=== PATIENT | female | born 1970 | race Caucasian/White ===

== ENCOUNTER 2017-08-08 03:55 | Inpatient (IN) | payer MEDICAID ==
[2017-08-08] MEDS ORDERED: Sodium Chloride 0.9% 1,000 ML IV STA (04:18)
[2017-08-08] MEDS ORDERED: Sodium Chloride 0.9% 1,000 ML ONE (04:35)
[2017-08-08 04:52] LABS: BASO % 0.5 % (0.0-2.0); EOS # 0.1 K/uL (0.0-0.7); EOS % 2.1 % (0.0-4.0); HEMOGLOBIN 12.6 g/dL (11.0-16.0); LYMPH # 1.4 K/uL (1.0-4.3); LYMPH % 25.4 % (20.0-40.0); MEAN CELL VOLUME 85.4 fL (81.0-99.0); MEAN CORPUSCULAR HEMOGLOBIN 28.5 pg (27.0-31.0); MEAN CORPUSCULAR HGB CONC 33.4 g/dL (33.0-37.0); MEAN PLATELET VOLUME 10.6 fL (7.2-11.7); MONO # 0.4 K/uL (0.0-0.8); MONO % 7.3 % (0.0-10.0); NEUT # 3.5 K/uL (1.8-7.0); NEUT % 64.7 % (50.0-75.0); RBC 4.43 Mil/uL (3.80-5.20); RED CELL DISTRIBUTION WIDTH 14.5 % (11.5-14.5); WHITE BLOOD COUNT 5.5 K/uL (4.8-10.8)
[2017-08-08 04:57] LABS: SQUAMOUS EPITHIAL 3 /hpf (0-5); URINE BILIRUBIN NEGATIVE (NEGATIVE); URINE CLARITY Hazy (Clear); URINE COLOR Yellow (YELLOW); URINE GLUCOSE (UA) NORMAL (Normal); URINE LEUKOCYTE ESTERASE NEG Leu/uL (Negative); URINE PROTEIN NEGATIVE (NEGATIVE); URINE UROBILINOGEN NORMAL mg/dL (0.2-1.0)
[2017-08-08 04:58] LABS: URINE BLOOD NEGATIVE (NEGATIVE)
[2017-08-08] MEDS ORDERED: Iohexol 240 (50 ml) PO STA (04:58)
[2017-08-08 05:10] LABS: ALB/GLOB RATIO 1.1 (1.0-2.1); ALBUMIN 3.8 g/dL (3.5-5.0); ALT/SGPT 41 U/L (9-52); AST/SGOT 61 U/L (14-36); BLOOD UREA NITROGEN 16 mg/dL (7-17); CALCIUM 8.8 mg/dl (8.6-10.4); GFR AFRICAN-AMERICAN > 60; GFR NON-AFRICAN AMERICAN > 60; LIPASE 125 U/L (23-300)
[2017-08-08] MEDS ORDERED: Iohexol 240 (50 ml) ONE (05:27)
--- NOTE | 2017-08-08 06:56 | C.PDOC ---
History Of Present Illness 46 y/o female presents to the ED complaining of abdominal pain that started last night. Associated with nausea, but no vomiting. Pain is localized to the left upper area. Patient denies any fever, chills, or diarrhea. Time Seen by Provider: 08/08/17 04:11 Chief Complaint (Nursing): Abdominal Pain History Per: Patient History/Exam Limitations: no limitations Onset/Duration Of Symptoms: Hrs Current Symptoms Are (Timing): Still Present Past Medical History Reviewed: Historical Data, Nursing Documentation, Vital Signs Vital Signs: Last Vital Signs Temp 97.8 F 08/08/17 06:41 Pulse 84 08/08/17 06:41 Resp 20 08/08/17 06:41 BP 94/57 L 08/08/17 06:41 Pulse Ox 98 08/08/17 06:59 - Medical History PMH: No Chronic Diseases Surgical History: Family History: States: No Known Family Hx - Social History Hx Tobacco Use: No Hx Alcohol Use: No Hx Substance Use: No - Immunization History Hx Tetanus Toxoid Vaccination: No Hx Influenza Vaccination: No Hx Pneumococcal Vaccination: No Review Of Systems Except As Marked, All Systems Reviewed And Found Negative. Constitutional: Negative for: Fever, Chills Gastrointestinal: Positive for: Nausea, Abdominal Pain. Negative for: Vomiting , Diarrhea Physical Exam - Physical Exam Appears: Non-toxic, No Acute Distress Skin: Normal Color, Warm, Dry Head: Atraumatic, Normacephalic Eye(s): bilateral: Normal Inspection, PERRL, EOMI Nose: Normal Oral Mucosa: Moist Neck: Normal ROM, Supple Chest: Symmetrical Cardiovascular: Rhythm Regular, No Murmur Respiratory: Normal Breath Sounds, No Rales, No Rhonchi, No Wheezing Gastrointestinal/Abdominal: Soft, Tenderness (mild left-sided tenderness), No Guarding, No Rebound Back: Normal Inspection, No CVA Tenderness, No Vertebral Tenderness Extremity: Bilateral: Atraumatic, Normal Color And Temperature, Normal ROM Pulses: Left Dorsalis Pedis: Normal, Right Dorsalis Pedis: Normal Neurological/Psych: Oriented x3, Normal Speech ED Course And Treatment - Laboratory Results Result Diagrams: 08/08/17 04:42 08/08/17 04:42 O2 Sat by Pulse Oximetry: 98 (RA) Pulse Ox Interpretation: Normal Progress Note: Labs and CT scan ordered. Patient given IV fluids, Toradol, Zofran, and Protonix. Patient will be endorsed to JENNIFER Valdez as of 7: [address] Disposition - Disposition Disposition Time: 07:12 Condition: STABLE Forms: [facility] (Burmese) - Clinical Impression Clinical Impression: Abdominal pain - PA / COOLER OPERATOR / Resident Statement MD/DO has reviewed & agrees with the documentation as recorded. - Scribe Statement The provider has reviewed the documentation as recorded by the Scribe (Brandy Pugh) All medical record entries made by the Scribe were at my direction and personally dictated by me. I have reviewed the chart and agree that the record accurately reflects my personal performance of the history, physical exam, medical decision making, and the department course for this patient. I have also personally directed, reviewed, and agree with the discharge instructions and disposition. Physician Patient Turnover Patient Signed Over To: Marielle Valdez Handoff Comments: CT/dispo
[2017-08-08] MEDS ORDERED: Iodixanol 320 MG/ML 100 ML BOTTLE IV ONE (07:02)
--- NOTE | 2017-08-08 08:41 | CT ---
PROCEDURE: CT Abdomen and Pelvis with contrast HISTORY: abd pain COMPARISON: Limited Abdomen Ultrasound exam dated 2 08/13/2015. TECHNIQUE: Following oral and intravenous contrast administration, a CT examination of the abdomen and pelvis performed from the domes of the diaphragms to the symphysis pubis with reformatted datasets provided not only axial but also sagittal and coronal series. Contrast dose: Visipaque 320, 100 cc Radiation dose: Total exam DLP = 641.07 MGy-cm. This CT exam was performed using one or more of the following dose reduction techniques: Automated exposure control, adjustment of the mA and/or kV according to patient size, and/or use of iterative reconstruction technique. FINDINGS: LOWER THORAX: Extensive bilateral ground-glass opacity is seen suggests of significant interstitial pulmonary disease. Clinically correlate further. LIVER: Hepatic steatosis is appreciate without discrete mass or intrahepatic biliary dilatation apparent. GALLBLADDER AND BILE DUCTS: Unremarkable. PANCREAS: Unremarkable. No gross lesion or ductal dilatation. SPLEEN: Unremarkable. ADRENALS: Unremarkable. No mass. KIDNEYS AND URETERS: Unremarkable. No hydronephrosis. No solid mass. VASCULATURE: Unremarkable. No aortic aneurysm. BOWEL: Stomach appears unremarkable. No bowel obstruction is appreciated there is no pericolic or perienteric reactive change related. No definitive colonic diverticular disease. APPENDIX: Normal appendix. PERITONEUM: Unremarkable. No free fluid. No free air. LYMPH NODES: Unremarkable. No enlarged lymph nodes. BLADDER: Limited evaluation due near complete decompression. REPRODUCTIVE: Unremarkable. BONES: No acute fracture. OTHER FINDINGS: None. IMPRESSION: Nonacute abdomen pelvis CT examination as discussed above. Hepatic steatosis.
--- NOTE | 2017-08-08 11:36 | CT ---
PROCEDURE: CT Chest without contrast HISTORY: ? mass in left upper lung COMPARISON: Chest radiographs 08/08/2017 9:27 a.m.. TECHNIQUE: Contiguous axial images were obtained through the chest without intravenous contrast enhancement. Sagittal and coronal reconstructions were performed. Radiation dose (DLP): 505.53 mGy-cm. This CT exam was performed using one or more of the following dose reduction techniques: Automated exposure control, adjustment of the mA and/or kV according to patient size, and/or use of iterative reconstruction technique. FINDINGS: LUNGS: Diffuse ground-glass opacity is seen affecting the bilateral upper lobes, particularly the apices and the bilateral lower lobes, particularly at the superior segments bilaterally. There is prominent scarring with cavitary changes in the left apex suggesting either bronchiectasis or current or postinfectious cavitary change. No air-fluid levels are associated at this time. No definitive mass identified. The central airways appear clear exclusive of the left apical findings. MEDIASTINUM: Unremarkable thoracic aorta. No aneurysm. Mild cardiomegaly is identified. Main pulmonary artery is dilated to 3.6 cm suggesting pulmonary artery hypertension. Clinically correlate further nevertheless. No prominent lymphadenopathy. PLEURA: No pleural fluid. No pneumothorax. BONES: No fracture. No destructive lesion. UPPER ABDOMEN: Grossly unremarkable. OTHER FINDINGS: Small hiatal hernia is encountered. IMPRESSION: Diffuse bilateral ground-glass opacity affects the upper greater than lower segments of the bilateral upper and lower lobes as well as the right middle lobe with bronchiectasis or cavitary changes either from current or postinfectious process in the left apex. No send lymphadenopathy, pleural or pericardial effusion. Cardiomegaly and evidence suggesting pulmonary artery hypertension. Clinically correlate further.
[2017-08-08 12:27] LABS: B-TYPE NATRIURETIC PEPTIDE 71.2 pg/mL (0-450)
--- NOTE | 2017-08-08 12:35 | RAD ---
HISTORY: luq pain. abnl appearing lungs on ab ct COMPARISON: Subsequent chest CT 08/08/2017 performed after this radiograph series. TECHNIQUE: Chest PA and lateral FINDINGS: LUNGS: Fibrotic changes in the left apex with possible cavitary changes. Subtle diffuse reticular markings are increased bilaterally with ground-glass opacity seen in subsequent chest CT bilaterally. Please see separate report. PLEURA: No significant pleural effusion identified. No pneumothorax apparent. CARDIOVASCULAR: Cardiac silhouette appears borderline enlarged. No pulmonary vascular congestion. OSSEOUS STRUCTURES: No significant abnormalities. VISUALIZED UPPER ABDOMEN: Normal. OTHER FINDINGS: None. IMPRESSION: Left apical fibrotic changes with cavitary lucency suspected. Bilateral increased reticular changes may reflect interstitial pulmonary disease low such as an atypical pneumonitis or reactive airways disease. Borderline cardiomegaly. Further clinical correlation posterior please see separate chest CT also performed 08/08/2017.
[2017-08-08] MEDS ORDERED: Tuberculin 5 Units/0.1 ml Inj ID ONE (14:30)
[2017-08-08] MEDS: Piperacill/Tazo 3.375gm in Dex 3.375 GM/50 ML BAG IVPB SCH ×2 (14:39→20:02)
--- NOTE | 2017-08-08 14:59 | CP.PCM.HP ---
<Amauri Patiño - Last Filed: 08/08/17 18:13> History of Present Illness - History of Present Illness History of Present Illness: 46 year old female with past medical history of childhood asthma, systolic heart murmur, presents today with abdominal pain. Patient reports her abdominal pain started suddenly this morning at 3am. Patient woke up from her sleep due the this pain. Patient describes the pain as bloating in quality, and non radiating. Patient also reports to feel nauseous and chills associated with this abdominal pain, but no vomiting. The pain is worse with movement. No prior history of the same. Patient denies having sick contacts, changes in diet, recent travels, fever, night sweat, weight loss, headache, shortness of breath, chest pain, diarrhea, urinary complaints. Patient reports to have asthma when she was a child and have not experienced any attacks since. She was evaluated by a twister frame tender for her heart murmur about 2 years ago and was told no intervention was necessary at the time. In the ED, chest CT shows diffuse bilateral ground-glass opacity and cavitary lesion of lung. She further denies having previous lung infections or trauma. PMD: [address] [place] [address] clinic PMHx: childhood asthma, systolic heart murmur PSHx: (2002, 2008) Allergy: mometasone Family Hx: Father with brain caner 2010 Social hx: denies tobacco, alcohol or drug use. Lives at home with and two children. 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 Home meds: Advil prn for back pain Present on Admission - Present on Admission Any Indicators Present on Admission: No Review of Systems - Review of Systems All systems: reviewed and no additional remarkable complaints except - Constitutional Constitutional: As Per HPI, Chills. absent: Anorexia, Fatigue, Fever - EENT Eyes: As Per HPI. absent: Blind Spots, Blurred Vision, Decreased Night Vision, Diplopia Ears: As Per HPI. absent: Decreased Hearing, Disequilibrium, Dizziness Nose/Mouth/Throat: As Per HPI. absent: Epistaxis, Nasal Obstruction, Nasal Trauma - Breasts Breasts: As Per HPI - Cardiovascular Cardiovascular: As Per HPI. absent: Chest Pain, Chest Pain at Rest, Chest Pain with Activity, Edema, Lightheadedness, Palpitations, Syncope - Respiratory Respiratory: As Per HPI. absent: Cough, Dyspnea, Wheezing - Gastrointestinal Gastrointestinal: As Per HPI, Abdominal Pain, Bloating, Nausea. absent: Diarrhea, Vomiting - Genitourinary Genitourinary: As Per HPI. absent: Change in Urinary Stream, Difficulty Urinating, Dysuria - Reproductive: Female Reproductive:Female: As Per HPI - Menstruation Menstruation: As Per HPI - Musculoskeletal Musculoskeletal: As Per HPI, Back Pain - Integumentary Integumentary: As Per HPI. absent: Acne, Alopecia - Neurological Neurological: As Per HPI. absent: Abnormal Gait, Dizziness, Numbness, Syncope, Tremor, Vertigo - Psychiatric Psychiatric: As Per HPI. absent: Anxiety, Confusion, Depression - Endocrine Endocrine: As Per HPI. absent: Change in Body Appearance - Hematologic/Lymphatic Hematologic: As Per HPI. absent: Easy Bleeding Past Patient History - Infectious Disease Hx of Infectious Diseases: None - Past Social History Smoking Status: Never Smoked - PSYCHIATRIC Hx Substance Use: No - SURGICAL HISTORY Hx Section: Yes - ANESTHESIA Hx Anesthesia: Yes Hx Anesthesia Reactions: No Meds Allergies/Adverse Reactions: Allergies Allergy/AdvReac Type Severity Reaction Status Date / Time mometasone furoate Allergy Severe Verified 08/08/17 04:16 [From Nasonex] Physical Exam - Constitutional Appears: Well, Non-toxic, No Acute Distress - Head Exam Head Exam: ATRAUMATIC, NORMOCEPHALIC - Eye Exam Eye Exam: EOMI, Normal appearance, PERRL Pupil Exam: NORMAL ACCOMODATION, PERRL - ENT Exam ENT Exam: Mucous Membranes Moist - Neck Exam Neck exam: Positive for: Full Rom, Normal Inspection - Respiratory Exam Respiratory Exam: Clear to Auscultation Bilateral, NORMAL BREATHING PATTERN. absent: Rhonchi, Wheezes, Respiratory Distress - Cardiovascular Exam Cardiovascular Exam: REGULAR RHYTHM, +S1, +S2, Systolic Murmur - GI/Abdominal Exam GI & Abdominal Exam: Normal Bowel Sounds, Soft. absent: Tenderness - Extremities Exam Extremities exam: Positive for: normal capillary refill, normal inspection, pedal pulses present. Negative for: pedal edema, tenderness - Back Exam Back exam: NORMAL INSPECTION. absent: CVA tenderness (L), CVA tenderness (R) - Neurological Exam Neurological exam: Alert, CN II-XII Intact, Oriented x3 - Psychiatric Exam Psychiatric exam: Normal Affect, Normal Mood - Skin Skin Exam: Intact, Normal Color, Warm Results - Vital Signs Recent Vital Signs: Last Vital Signs Temp 97 F L 08/08/17 12:46 Pulse 76 08/08/17 12:46 Resp 18 08/08/17 13:15 BP 113/58 L 08/08/17 12:46 Pulse Ox 99 08/08/17 12:46 - Labs Result Diagrams: 08/08/17 04:42 08/08/17 04:42 Labs: Laboratory Results - last 24 hr 08/08/17 08/08/17 08/08/17 04:42 04:42 04:49 WBC 5.5 RBC 4.43 Hgb 12.6 Hct 37.8 MCV 85.4 MCH 28.5 MCHC 33.4 RDW 14.5 Plt Count 148 MPV 10.6 Neut % (Auto) 64.7 Lymph % (Auto) 25.4 Ray % (Auto) 7.3 Eos % (Auto) 2.1 Baso % (Auto) 0.5 Neut # (Auto) 3.5 Lymph # (Auto) 1.4 Ray # (Auto) 0.4 Eos # (Auto) 0.1 Baso # (Auto) 0.0 Sodium 143 Potassium 4.0 Chloride 109 H Carbon Dioxide 25 Anion Gap 13 BUN 16 Creatinine 0.7 Est GFR ( Amer) > 60 Est GFR (Non-Af Amer) > 60 Random Glucose 125 H Calcium 8.8 Total Bilirubin 0.3 AST 61 H ALT 41 Alkaline Phosphatase 91 NT-Pro-B Natriuret Pep 71.2 Total Protein 7.2 Albumin 3.8 Globulin 3.4 Albumin/Globulin Ratio 1.1 Lipase 125 Urine Color Yellow Urine Clarity Hazy Urine pH 6.0 Ur Specific [place] 1.018 Urine Protein Negative Urine Glucose (UA) Normal Urine Ketones Negative Urine Blood Negative Urine Nitrate Negative Urine Bilirubin Negative Urine Urobilinogen Normal Ur Leukocyte Esterase Neg Urine WBC (Auto) 4 Urine RBC (Auto) 2 Ur Squamous Epith Cells 3 Assessment & Plan - Assessment and Plan (Free Text) Assessment: Bronchiectasis/cavitary changes of the lungs -CT abd shows bilateral ground glass opacity -CXR shows Left apical fibrotic changes with cavitary lucency suspected. Bilateral increased reticular changes may reflect interstitial pulmonary disease low such as an atypical pneumonitis or reactive airways disease -CT Chest shows diffuse bilateral ground-glass opacity affects the upper greater than lower segments of the bilateral upper and lower lobes as well as the right middle lobe with bronchiectasis or cavitary changes either from current or postinfectious process in the left apex. Cardiomegaly and evidence suggesting pulmonary artery hypertension -Patient currently has no pulmonary symptoms -Follow up ESR, procal, sputum culture, AFBx3, PPD skin test -Isolation precaution -Pulmonary consulted, Dr. Lew help appreciated -ID consulted, Dr. Owens help appreciated -Zosyn 3.375gm Q6h (start 08/08) Systolic murmur -Follow up echocardiogram -Cardiology consulted, Dr. Wisdom help appreciated -Follow up KARISHMA, EKG Abdominal pain -CT abd shows nonacute abdomen pelvis examination. Hepatic steatosis. -Afebrile, no leukocytosis, negative lipase -Improved with toradol -Follow up procal Prophylactic measures -Pepcid -Lovenox Case discussed with attending physician Dr. Dukes <Catherine Dukes - Last Filed: 08/16/17 18:55> Results - Vital Signs Recent Vital Signs: Last Vital Signs Temp 98 F 08/08/17 16:00 Pulse 56 L 08/08/17 16:00 Resp 20 08/08/17 16:00 BP 109/52 L 08/08/17 16:00 Pulse Ox 95 08/08/17 16:00 - Labs Result Diagrams: 08/15/17 07:58 08/15/17 07:58 Labs: Laboratory Results - last 24 hr 08/08/17 08/08/17 08/08/17 04:42 04:42 04:49 WBC 5.5 RBC 4.43 Hgb 12.6 Hct 37.8 MCV 85.4 MCH 28.5 MCHC 33.4 RDW 14.5 Plt Count 148 MPV 10.6 Neut % (Auto) 64.7 Lymph % (Auto) 25.4 Ray % (Auto) 7.3 Eos % (Auto) 2.1 Baso % (Auto) 0.5 Neut # (Auto) 3.5 Lymph # (Auto) 1.4 Ray # (Auto) 0.4 Eos # (Auto) 0.1 Baso # (Auto) 0.0 ESR Sodium 143 Potassium 4.0 Chloride 109 H Carbon Dioxide 25 Anion Gap 13 BUN 16 Creatinine 0.7 Est GFR ( Amer) > 60 Est GFR (Non-Af Amer) > 60 Random Glucose 125 H Calcium 8.8 Total Bilirubin 0.3 AST 61 H ALT 41 Alkaline Phosphatase 91 NT-Pro-B Natriuret Pep 71.2 Total Protein 7.2 Albumin 3.8 Globulin 3.4 Albumin/Globulin Ratio 1.1 Lipase 125 Procalcitonin Urine Color Yellow Urine Clarity Hazy Urine pH 6.0 Ur Specific [place] 1.018 Urine Protein Negative Urine Glucose (UA) Normal Urine Ketones Negative Urine Blood Negative Urine Nitrate Negative Urine Bilirubin Negative Urine Urobilinogen Normal Ur Leukocyte Esterase Neg Urine WBC (Auto) 4 Urine RBC (Auto) 2 Ur Squamous Epith Cells 3 08/08/17 08/08/17 16:40 16:40 WBC RBC Hgb Hct MCV MCH MCHC RDW Plt Count MPV Neut % (Auto) Lymph % (Auto) Ray % (Auto) Eos % (Auto) Baso % (Auto) Neut # (Auto) Lymph # (Auto) Ray # (Auto) Eos # (Auto) Baso # (Auto) ESR 10 Sodium Potassium Chloride Carbon Dioxide Anion Gap BUN Creatinine Est GFR ( Amer) Est GFR (Non-Af Amer) Random Glucose Calcium Total Bilirubin AST ALT Alkaline Phosphatase NT-Pro-B Natriuret Pep Total Protein Albumin Globulin Albumin/Globulin Ratio Lipase Procalcitonin < 0.05 L Urine Color Urine Clarity Urine pH Ur Specific [place] Urine Protein Urine Glucose (UA) Urine Ketones Urine Blood Urine Nitrate Urine Bilirubin Urine Urobilinogen Ur Leukocyte Esterase Urine WBC (Auto) Urine RBC (Auto) Ur Squamous Epith Cells Attending/Attestation - Attestation I have personally seen and examined this patient.: Yes I have fully participated in the care of the patient.: Yes I have reviewed all pertinent clinical information: Yes Notes (Text): Patient was seen and examined by me. History taken with the database analyst service. Denies sob,no fever,no recent weight loss,no night sweats,no recnt chest infection,denies SOB at night or ambulation Discussed with the resident. unlikely bacterial infection ?. Satuarting well and no sob we will start on zosyn and aske Dr Owens for consult R/O TB,Isolation,pulmonary consult I agree with the resident's documentation
--- NOTE | 2017-08-08 16:18 | CP.PCM.CON ---
History of Present Illness - History of Present Illness History of Present Illness: 46 year old with Hx of asthma, admitted with abd pain, diagnosed with gallstones 2016 at ED, found now with interstitial infiltrate on chest CT, for ID, pul work up, no CP or SOB. with hx of syt murmur was evaluated before, 2 years ago, asymptomatic. will follow with echo Review of Systems - Review of Systems Systems not reviewed;Unavailable: Language Barrier - Constitutional Constitutional: Anorexia. absent: Chills - EENT Eyes: absent: Discharge Ears: absent: Ear Discharge, Dizziness Nose/Mouth/Throat: absent: Epistaxis - Cardiovascular Cardiovascular: absent: Acrocyanosis, Diaphoresis, Palpitations, Pedal Edema, Syncope - Respiratory Respiratory: absent: Cough, Dyspnea, Hemoptysis - Gastrointestinal Gastrointestinal: absent: Abdominal Pain, Diarrhea, Melena, Vomiting - Genitourinary Genitourinary: absent: Change in Urinary Stream Past Patient History - Infectious Disease Hx of Infectious Diseases: None - Past Social History Smoking Status: Never Smoked - PSYCHIATRIC Hx Substance Use: No - SURGICAL HISTORY Hx Section: Yes - ANESTHESIA Hx Anesthesia: Yes Hx Anesthesia Reactions: No Meds Allergies/Adverse Reactions: Allergies Allergy/AdvReac Type Severity Reaction Status Date / Time mometasone furoate Allergy Severe Verified 08/08/17 04:16 [From Nasonex] - Medications Medications: Current Medications Enoxaparin Sodium (Lovenox) 40 mg SC DAILY KAMERON Famotidine (Pepcid) 20 mg PO BID KAMERON Piperacillin Sod/Tazobactam Sod (Zosyn 3.375 Gm Iv Premix) 3.375 gm in 50 mls @ 100 mls/hr IVPB Q6H KAMERON PRN Reason: Protocol Last Admin: 08/08/17 14:39 Dose: 100 mls/hr Physical Exam - Constitutional Appears: Non-toxic - Head Exam Head Exam: ATRAUMATIC - Eye Exam Eye Exam: EOMI - ENT Exam ENT Exam: Mucous Membranes Moist - Neck Exam Neck exam: Negative for: Lymphadenopathy, Thyromegaly - Respiratory Exam Respiratory Exam: Clear to Auscultation Bilateral. absent: Rales - Cardiovascular Exam Cardiovascular Exam: REGULAR RHYTHM, Systolic Murmur - GI/Abdominal Exam GI & Abdominal Exam: Organomegaly. absent: Normal Bowel Sounds - Rectal Exam Rectal Exam: Deferred - Extremities Exam Extremities exam: Positive for: normal capillary refill. Negative for: calf tenderness - Neurological Exam Neurological exam: Alert, Oriented x3 - Psychiatric Exam Psychiatric exam: Normal Affect - Skin Skin Exam: Dry Results - Vital Signs Recent Vital Signs: Last Vital Signs Temp 98.3 F 08/08/17 14:00 Pulse 66 08/08/17 14:00 Resp 18 08/08/17 14:00 BP 125/60 08/08/17 14:00 Pulse Ox 98 08/08/17 14:00 - Labs Result Diagrams: 08/10/17 07:25 08/10/17 07:25 Labs: Laboratory Results - last 24 hr 08/08/17 08/08/17 08/08/17 04:42 04:42 04:49 WBC 5.5 RBC 4.43 Hgb 12.6 Hct 37.8 MCV 85.4 MCH 28.5 MCHC 33.4 RDW 14.5 Plt Count 148 MPV 10.6 Neut % (Auto) 64.7 Lymph % (Auto) 25.4 [place] % (Auto) 7.3 Eos % (Auto) 2.1 Baso % (Auto) 0.5 Neut # (Auto) 3.5 Lymph # (Auto) 1.4 [place] # (Auto) 0.4 Eos # (Auto) 0.1 Baso # (Auto) 0.0 Sodium 143 Potassium 4.0 Chloride 109 H Carbon Dioxide 25 Anion Gap 13 BUN 16 Creatinine 0.7 Est GFR ( Amer) > 60 Est GFR (Non-Af Amer) > 60 Random Glucose 125 H Calcium 8.8 Total Bilirubin 0.3 AST 61 H ALT 41 Alkaline Phosphatase 91 NT-Pro-B Natriuret Pep 71.2 Total Protein 7.2 Albumin 3.8 Globulin 3.4 Albumin/Globulin Ratio 1.1 Lipase 125 Urine Color Yellow Urine Clarity Hazy Urine pH 6.0 Ur Specific [place] 1.018 Urine Protein Negative Urine Glucose (UA) Normal Urine Ketones Negative Urine Blood Negative Urine Nitrate Negative Urine Bilirubin Negative Urine Urobilinogen Normal Ur Leukocyte Esterase Neg Urine WBC (Auto) 4 Urine RBC (Auto) 2 Ur Squamous Epith Cells 3 Assessment & Plan (1) Murmur, cardiac Status: Acute
--- NOTE | 2017-08-08 18:40 | CP.PCM.CON ---
History of Present Illness - History of Present Illness History of Present Illness: 46 year old female presents today with abdominal pain described as bloating in quality, and non radiating. Patient also reports to feel nauseous and chills associated with this abdominal pain, but no vomiting. In the ED, chest CT shows diffuse bilateral ground-glass opacity and cavitary lesion of lung. She further denies having previous lung infections or trauma. Referred for ID eval for possible infectious etiology advised to screen for TB in view of CT findings PMHx: childhood asthma, systolic heart murmur PSHx: (2002, 2008) Allergy: mometasone Family Hx: Father with brain caner 2010 Social hx: denies tobacco, alcohol or drug use. Lives at home with and two children. 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 Home meds: Advil prn for back pain Review of Systems - Review of Systems All systems: reviewed and no additional remarkable complaints except - Constitutional Constitutional: As Per HPI Past Patient History - Infectious Disease Hx of Infectious Diseases: None - Past Social History Smoking Status: Never Smoked - PSYCHIATRIC Hx Substance Use: No - SURGICAL HISTORY Hx Section: Yes - ANESTHESIA Hx Anesthesia: Yes Hx Anesthesia Reactions: No Meds Allergies/Adverse Reactions: Allergies Allergy/AdvReac Type Severity Reaction Status Date / Time mometasone furoate Allergy Severe Verified 08/08/17 04:16 [From Nasonex] - Medications Medications: Current Medications Enoxaparin Sodium (Lovenox) 40 mg SC DAILY [facility] Famotidine (Pepcid) 20 mg PO BID [facility] Last Admin: 08/08/17 17:44 Dose: 20 mg Piperacillin Sod/Tazobactam Sod (Zosyn 3.375 Gm Iv Premix) 3.375 gm in 50 mls @ 100 mls/hr IVPB Q6H [facility] PRN Reason: Protocol Last Admin: 08/08/17 14:39 Dose: 100 mls/hr Physical Exam - Constitutional Appears: No Acute Distress - Head Exam Head Exam: ATRAUMATIC, NORMAL INSPECTION, NORMOCEPHALIC - Eye Exam Eye Exam: EOMI, PERRL. absent: Scleral icterus - ENT Exam ENT Exam: Mucous Membranes Dry, Normal External Ear Exam - Neck Exam Neck exam: Negative for: Lymphadenopathy - Respiratory Exam Respiratory Exam: Decreased Breath Sounds, Rhonchi - Cardiovascular Exam Cardiovascular Exam: REGULAR RHYTHM, +S1, +S2 - GI/Abdominal Exam GI & Abdominal Exam: Diminished Bowel Sounds, Soft. absent: Tenderness - Rectal Exam Rectal Exam: Deferred - Exam Exam: NORMAL INSPECTION - Extremities Exam Extremities exam: Negative for: pedal edema - Back Exam Back exam: absent: CVA tenderness (L), CVA tenderness (R) - Neurological Exam Neurological exam: Alert, CN II-XII Intact, Oriented x3 - Psychiatric Exam Psychiatric exam: Normal Mood - Skin Skin Exam: Dry Results - Vital Signs Recent Vital Signs: Last Vital Signs Temp 98 F 08/08/17 16:00 Pulse 56 L 08/08/17 16:00 Resp 20 08/08/17 16:00 BP 109/52 L 08/08/17 16:00 Pulse Ox 95 08/08/17 16:00 - Labs Result Diagrams: 08/08/17 04:42 08/08/17 04:42 Labs: Laboratory Results - last 24 hr 08/08/17 08/08/17 08/08/17 04:42 04:42 04:49 WBC 5.5 RBC 4.43 Hgb 12.6 Hct 37.8 MCV 85.4 MCH 28.5 MCHC 33.4 RDW 14.5 Plt Count 148 MPV 10.6 Neut % (Auto) 64.7 Lymph % (Auto) 25.4 [place] % (Auto) 7.3 Eos % (Auto) 2.1 Baso % (Auto) 0.5 Neut # (Auto) 3.5 Lymph # (Auto) 1.4 [place] # (Auto) 0.4 Eos # (Auto) 0.1 Baso # (Auto) 0.0 ESR Sodium 143 Potassium 4.0 Chloride 109 H Carbon Dioxide 25 Anion Gap 13 BUN 16 Creatinine 0.7 Est GFR ( Amer) > 60 Est GFR (Non-Af Amer) > 60 Random Glucose 125 H Calcium 8.8 Total Bilirubin 0.3 AST 61 H ALT 41 Alkaline Phosphatase 91 NT-Pro-B Natriuret Pep 71.2 Total Protein 7.2 Albumin 3.8 Globulin 3.4 Albumin/Globulin Ratio 1.1 Lipase 125 Procalcitonin Urine Color Yellow Urine Clarity Hazy Urine pH 6.0 Ur Specific [place] 1.018 Urine Protein Negative Urine Glucose (UA) Normal Urine Ketones Negative Urine Blood Negative Urine Nitrate Negative Urine Bilirubin Negative Urine Urobilinogen Normal Ur Leukocyte Esterase Neg Urine WBC (Auto) 4 Urine RBC (Auto) 2 Ur Squamous Epith Cells 3 08/08/17 08/08/17 16:40 16:40 WBC RBC Hgb Hct MCV MCH MCHC RDW Plt Count MPV Neut % (Auto) Lymph % (Auto) [place] % (Auto) Eos % (Auto) Baso % (Auto) Neut # (Auto) Lymph # (Auto) [place] # (Auto) Eos # (Auto) Baso # (Auto) ESR 10 Sodium Potassium Chloride Carbon Dioxide Anion Gap BUN Creatinine Est GFR ( Amer) Est GFR (Non-Af Amer) Random Glucose Calcium Total Bilirubin AST ALT Alkaline Phosphatase NT-Pro-B Natriuret Pep Total Protein Albumin Globulin Albumin/Globulin Ratio Lipase Procalcitonin < 0.05 L Urine Color Urine Clarity Urine pH Ur Specific [place] Urine Protein Urine Glucose (UA) Urine Ketones Urine Blood Urine Nitrate Urine Bilirubin Urine Urobilinogen Ur Leukocyte Esterase Urine WBC (Auto) Urine RBC (Auto) Ur Squamous Epith Cells Assessment & Plan (1) Abdominal pain Status: Acute (2) Cavitary lesion of lung Status: Acute (3) Ground glass opacity present on imaging of lung Status: Acute - Assessment and Plan (Free Text) Assessment: possible chronic lung changes- not symptomatic at present would rule out active TB before d/c and refer to Chest clinic for follow up
--- NOTE | 2017-08-08 20:21 | CP.PCM.CON ---
History of Present Illness - History of Present Illness History of Present Illness: Pulmonary Evaluation Covering Dr. Lew The patient was Seen/interviewed and examined by me at the bedside, Medical records reviewed and Management issues were discussed and formulated with the house staff. Events reviewed 46 year old female with PMHx of controlled asthma (since childhood) and systolic heart murmur (Dx about 2 years ago). Who presented yesterday with complaint on abdominal pain, mostly epigastric and upper Abd, Patient describes the pain as bloatingand non radiating. Patient underwent CT abd shows bilateral ground glass opacity, CXR shows Left apical fibrotic changes with cavitary lucency suspected. Patient recalles being told that she has a spot over lung when she was hospitalized in 2002 Patient lying in bed comfortably. Patient Denies dyspnea, Fever/chills/night sweats, chest pain, Cough, hempotysis, or Palpitations Pt denies any sick contact or recent travel. - Social hx:Pt from [employer], denies tobacco, alcohol or drug use. Lives at home with and two children. - CT Chest shows diffuse bilateral ground-glass opacity affects the upper greater than lower segments of the bilateral upper and lower lobes as well as the right middle lobe with bronchiectasis or cavitary changes either from current or postinfectious process in the left apex. Cardiomegaly and evidence suggesting pulmonary artery hypertension , Review of Systems - Cardiovascular Cardiovascular: absent: As Per HPI, Acrocyanosis, Chest Pain, Chest Pain at Rest , Chest Pain with Activity, Claudication, Diaphoresis, Dyspnea, Dyspnea on Exertion, Edema, Irregular Heart Rhythm, Pain Radiating to Arm/Neck/Jaw, Leg Edema, Leg Ulcers, Lightheadedness, Orthopnea, Palpitations, Paroxysmal Nocturnal Dyspnea, Pedal Edema, Radiating Pain, Rapid Heart Rate, Slow Heart Rate, Syncope, Other - Respiratory Respiratory: absent: As Per HPI, Cough, Dyspnea, Hemoptysis, Dyspnea on Exertion , Wheezing, Snoring, Stridor, Pain on Inspiration, Chest Congestion, Excessive Mucous Production, Change in Mucous Color, Pain with Coughing, Other - Gastrointestinal Gastrointestinal: Abdominal Pain (Epigastric ) Past Patient History - Infectious Disease Hx of Infectious Diseases: None - Past Social History Smoking Status: Never Smoked - PSYCHIATRIC Hx Substance Use: No - SURGICAL HISTORY Hx Section: Yes - ANESTHESIA Hx Anesthesia: Yes Hx Anesthesia Reactions: No Meds Allergies/Adverse Reactions: Allergies Allergy/AdvReac Type Severity Reaction Status Date / Time mometasone furoate Allergy Severe Verified 08/08/17 04:16 [From Nasonex] - Medications Medications: Current Medications Enoxaparin Sodium (Lovenox) 40 mg SC DAILY [facility] Famotidine (Pepcid) 20 mg PO BID [facility] Last Admin: 08/08/17 17:44 Dose: 20 mg Piperacillin Sod/Tazobactam Sod (Zosyn 3.375 Gm Iv Premix) 3.375 gm in 50 mls @ 100 mls/hr IVPB Q6H [facility] PRN Reason: Protocol Last Admin: 08/08/17 20:02 Dose: 100 mls/hr Ketorolac Tromethamine (Toradol) 30 mg IVP Q6 PRN PRN Reason: Pain, severe (8-10) Physical Exam - Constitutional Appears: Well, Non-toxic, No Acute Distress - Head Exam Head Exam: ATRAUMATIC, NORMAL INSPECTION, NORMOCEPHALIC - Eye Exam Eye Exam: EOMI, Normal appearance. absent: Conjunctival injection Pupil Exam: NORMAL ACCOMODATION, PERRL - ENT Exam ENT Exam: Mucous Membranes Moist - Neck Exam Neck exam: Positive for: Full Rom, Normal Inspection. Negative for: Lymphadenopathy, Meningismus, Tenderness, Thyromegaly - Respiratory Exam Respiratory Exam: Clear to Auscultation Bilateral. absent: Accessory Muscle Use , Chest Wall Tenderness, Decreased Breath Sounds, Prolonged Expiratory Phase, Rales, Rhonchi, Wheezes, Respiratory Distress - Cardiovascular Exam Cardiovascular Exam: REGULAR RHYTHM, RRR, +S1, +S2. absent: Bradycardia, Tachycardia, Clicks, Diastolic murmur, JVD, Systolic Murmur - GI/Abdominal Exam GI & Abdominal Exam: Normal Bowel Sounds. absent: Distended, Firm, Guarding, Hernia, Organomegaly - Extremities Exam Extremities exam: Positive for: full ROM, normal capillary refill. Negative for : calf tenderness, joint swelling, pedal edema, tenderness - Back Exam Back exam: absent: CVA tenderness (L), CVA tenderness (R) - Neurological Exam Neurological exam: Alert, CN II-XII Intact, Motor Sensory Deficit, Normal Gait, Oriented x3, Reflexes Normal Results - Vital Signs Recent Vital Signs: Last Vital Signs Temp 98 F 08/08/17 16:00 Pulse 56 L 08/08/17 16:00 Resp 20 05/27/18 16:00 BP 109/52 L 08/08/17 16:00 Pulse Ox 95 08/08/17 16:00 - Labs Result Diagrams: 08/08/17 04:42 08/08/17 04:42 Labs: Laboratory Results - last 24 hr 08/08/17 08/08/17 08/08/17 04:42 04:42 04:49 WBC 5.5 RBC 4.43 Hgb 12.6 Hct 37.8 MCV 85.4 MCH 28.5 MCHC 33.4 RDW 14.5 Plt Count 148 MPV 10.6 Neut % (Auto) 64.7 Lymph % (Auto) 25.4 [place] % (Auto) 7.3 Eos % (Auto) 2.1 Baso % (Auto) 0.5 Neut # (Auto) 3.5 Lymph # (Auto) 1.4 [place] # (Auto) 0.4 Eos # (Auto) 0.1 Baso # (Auto) 0.0 ESR Sodium 143 Potassium 4.0 Chloride 109 H Carbon Dioxide 25 Anion Gap 13 BUN 16 Creatinine 0.7 Est GFR ( Amer) > 60 Est GFR (Non-Af Amer) > 60 Random Glucose 125 H Calcium 8.8 Total Bilirubin 0.3 AST 61 H ALT 41 Alkaline Phosphatase 91 Total Creatine Kinase NT-Pro-B Natriuret Pep 71.2 Total Protein 7.2 Albumin 3.8 Globulin 3.4 Albumin/Globulin Ratio 1.1 Lipase 125 Procalcitonin Urine Color Yellow Urine Clarity Hazy Urine pH 6.0 Ur Specific [place] 1.018 Urine Protein Negative Urine Glucose (UA) Normal Urine Ketones Negative Urine Blood Negative Urine Nitrate Negative Urine Bilirubin Negative Urine Urobilinogen Normal Ur Leukocyte Esterase Neg Urine WBC (Auto) 4 Urine RBC (Auto) 2 Ur Squamous Epith Cells 3 08/08/17 08/08/17 08/08/17 16:40 16:40 19:50 WBC RBC Hgb Hct MCV MCH MCHC RDW Plt Count MPV Neut % (Auto) Lymph % (Auto) [place] % (Auto) Eos % (Auto) Baso % (Auto) Neut # (Auto) Lymph # (Auto) [place] # (Auto) Eos # (Auto) Baso # (Auto) ESR 10 Sodium Potassium Chloride Carbon Dioxide Anion Gap BUN Creatinine Est GFR ( Amer) Est GFR (Non-Af Amer) Random Glucose Calcium Total Bilirubin AST ALT Alkaline Phosphatase Total Creatine Kinase 63 NT-Pro-B Natriuret Pep Total Protein Albumin Globulin Albumin/Globulin Ratio Lipase Procalcitonin < 0.05 L Urine Color Urine Clarity Urine pH Ur Specific [place] Urine Protein Urine Glucose (UA) Urine Ketones Urine Blood Urine Nitrate Urine Bilirubin Urine Urobilinogen Ur Leukocyte Esterase Urine WBC (Auto) Urine RBC (Auto) Ur Squamous Epith Cells Assessment & Plan (1) Cavitary lesion of lung Status: Acute (2) Ground glass opacity present on imaging of lung Status: Acute (3) Pulmonary hypertension Status: Acute - Assessment and Plan (Free Text) Assessment: Bronchiectasis, Need to R/O Mac infection and ABPA cavitary changes of the lungs Pulmonary hypertension Controlled Asthma, reactive airways disease. Pt denies shortness of breath resolved now or any pulmonary complains at this time, stable respiratory status, adequate saturation on RA Afebrile, no leukocytosis Doubt acute infectious process or atypical pneumonitis Agree with Isolation precaution Follow up sputum culture, AFBx3, quantiferon gold Aspergillus antigen and antigen ordered Sputum for MAC ordered Follow up echocardiogram
[2017-08-08 20:22] LABS: CK-MB 0.29 ng/mL (0.0-3.38)
[2017-08-09] MEDS: Piperacill/Tazo 3.375gm in Dex 3.375 GM/50 ML BAG IVPB SCH ×2 (02:23→08:43)
[2017-08-09 04:24] LABS: CK-MB 0.29 ng/mL (0.0-3.38)
[2017-08-09 08:15] LABS: BASO % 0.7 % (0.0-2.0); EOS # 0.1 K/uL (0.0-0.7); EOS % 2.1 % (0.0-4.0); HEMOGLOBIN 13.5 g/dL (11.0-16.0); LYMPH # 1.2 K/uL (1.0-4.3); LYMPH % 31.6 % (20.0-40.0); MEAN CELL VOLUME 85.5 fL (81.0-99.0); MEAN CORPUSCULAR HEMOGLOBIN 29.2 pg (27.0-31.0); MEAN CORPUSCULAR HGB CONC 34.1 g/dL (33.0-37.0); MEAN PLATELET VOLUME 10.6 fL (7.2-11.7); MONO # 0.3 K/uL (0.0-0.8); MONO % 7.3 % (0.0-10.0); NEUT # 2.2 K/uL (1.8-7.0); NEUT % 58.3 % (50.0-75.0); NRBC % 0.2 % (0.0-2.0); RBC 4.62 Mil/uL (3.80-5.20); RED CELL DISTRIBUTION WIDTH 14.2 % (11.5-14.5); WHITE BLOOD COUNT 3.8 K/uL (4.8-10.8)
[2017-08-09] MEDS ORDERED: Albuterol 0.083% Inhal Sol (2.5 mg/3 mL) UD INH ONE (08:30)
[2017-08-09] MEDS ORDERED: Acetylcysteine 20% Inhal Soln (4ml) INH SCH (08:30)
[2017-08-09 08:34] LABS: ALB/GLOB RATIO 1.1 (1.0-2.1); ALBUMIN 4.1 g/dL (3.5-5.0); ALT/SGPT 67 U/L (9-52); AST/SGOT 47 U/L (14-36); BLOOD UREA NITROGEN 11 mg/dL (7-17); GFR AFRICAN-AMERICAN > 60; GFR NON-AFRICAN AMERICAN > 60
[2017-08-09 08:47] LABS: HEPATITIS B SURFACE AG Negative (NEGATIVE)
[2017-08-09 08:53] LABS: HEPATITIS A IGM NEGATIVE (NEGATIVE); HEPATITIS B CORE AB NEGATIVE (NEGATIVE)
[2017-08-09 09:05] LABS: HEPATITIS C ANTIBODY NEGATIVE (NEGATIVE)
[2017-08-09] MEDS ORDERED: Lactobacillus Acidophilus 500 MU Cap PO SCH (10:00)
[2017-08-09] MEDS: Enoxaparin 40 mg Syringe SC SCH (10:48)
--- NOTE | 2017-08-09 15:02 | CP.PCM.PN ---
<Carrol Nichols - Last Filed: 08/09/17 14:57> Subjective - Date & Time of Evaluation Date of Evaluation: 08/09/17 Time of Evaluation: 09:00 - Subjective Subjective: Medicine Note for Hospitalist Service - Dr. Perez Joy Patient was seen and examined at bedside. Patient reports she has minimal LUQ abdominal pain. Denied fever, chills, headache, chest pain, SOB, cough, abdominal pain, n/v/d/c, or urinary symptoms. Objective - Vital Signs/Intake and Output Vital Signs (last 24 hours): Temp Pulse Resp BP Pulse Ox 97.7 F 54 L 20 103/43 L 98 08/09/17 07:20 08/09/17 12:00 08/09/17 07:20 08/09/17 07:20 08/09/17 12:00 Intake and Output: 08/09/17 08/09/17 06:59 18:59 Intake Total 690 Balance 690 - Medications Medications: Current Medications Acetylcysteine (Acetylcysteine 20%) 4 ml INH ONCE [facility] Enoxaparin Sodium (Lovenox) 40 mg SC DAILY [facility] Last Admin: 08/09/17 10:48 Dose: 40 mg Famotidine (Pepcid) 20 mg PO BID [facility] Last Admin: 08/09/17 10:48 Dose: 20 mg Ketorolac Tromethamine (Toradol) 30 mg IVP Q6 PRN PRN Reason: Pain, severe (8-10) Lactobacillus Acidophilus (Bacid Acidophilus) 1 cap PO BID [facility] Last Admin: 08/09/17 10:48 Dose: 1 cap - Labs Labs: 08/09/17 07:50 08/09/17 07:50 - Additional Findings Additional findings: - Constitutional Appears: Well, Non-toxic, No Acute Distress - Head Exam Head Exam: ATRAUMATIC, NORMOCEPHALIC - Eye Exam Eye Exam: EOMI, Normal appearance, PERRL Pupil Exam: NORMAL ACCOMODATION, PERRL - ENT Exam ENT Exam: Mucous Membranes Moist - Neck Exam Neck exam: Positive for: Full Rom, Normal Inspection - Respiratory Exam Respiratory Exam: Clear to Auscultation Bilateral, NORMAL BREATHING PATTERN. absent: Rhonchi, Wheezes, Respiratory Distress - Cardiovascular Exam Cardiovascular Exam: REGULAR RHYTHM, +S1, +S2, Systolic Murmur - GI/Abdominal Exam GI & Abdominal Exam: Normal Bowel Sounds, Soft. absent: Tenderness - Extremities Exam Extremities exam: Positive for: normal capillary refill, normal inspection, pedal pulses present. Negative for: pedal edema, tenderness - Back Exam Back exam: NORMAL INSPECTION. absent: CVA tenderness (L), CVA tenderness (R) - Neurological Exam Neurological exam: Alert, CN II-XII Intact, Oriented x3 - Psychiatric Exam Psychiatric exam: Normal Affect, Normal Mood - Skin Skin Exam: Intact, Normal Color, Warm Assessment and Plan - Assessment and Plan (Free Text) Plan: Bronchiectasis/cavitary changes of the lungs Rule out TB -Pulmonary consulted, Dr. Lew help appreciated -ID consulted, Dr. 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 Bilateral increased reticular changes may reflect interstitial pulmonary disease low such as an atypical pneumonitis or reactive airways disease -CT abd shows bilateral ground glass opacity -CT Chest shows diffuse bilateral ground-glass opacity affects the upper greater than lower segments of the bilateral upper and lower lobes as well as the right middle lobe with bronchiectasis or cavitary changes either from current or postinfectious process in the left apex. Cardiomegaly and evidence suggesting pulmonary artery hypertension -Patient currently has no pulmonary symptoms -procal: low; unlikely bacterial source -Follow up sputum culture, AFBx3, PPD skin test, Quantiferon Gold Systolic murmur -Cardiology consulted, Dr. Wisdom help appreciated -EKG - NSR, KARISHMA x 3 negative -Follow up echocardiogram Transaminitis -Uptrending -Hepatitis panel negative -Continue to monitor Abdominal pain -- > Resolved -CT abd shows nonacute abdomen pelvis examination. Hepatic steatosis. -Afebrile, no leukocytosis, negative lipase -Improved with toradol -procal: low Prophylactic measures -Pepcid -Lovenox DW Carrol Hernandez DO, PGY-1 <Perez Joy - Last Filed: 08/09/17 19:14> Objective - Vital Signs/Intake and Output Vital Signs (last 24 hours): Temp Pulse Resp BP Pulse Ox 98.0 F 58 L 20 122/72 96 08/09/17 16:06 08/09/17 16:06 08/09/17 16:06 08/09/17 16:06 08/09/17 16:06 - Medications Medications: Current Medications Acetylcysteine (Acetylcysteine 20%) 4 ml INH RSTAT [facility] Stop: 08/09/17 19:09 Acetylcysteine (Acetylcysteine 20%) 4 ml INH ONCE [facility] Enoxaparin Sodium (Lovenox) 40 mg SC DAILY [facility] Last Admin: 08/09/17 10:48 Dose: 40 mg Famotidine (Pepcid) 20 mg PO BID [facility] Last Admin: 08/09/17 17:18 Dose: 20 mg Ketorolac Tromethamine (Toradol) 30 mg IVP Q6 PRN PRN Reason: Pain, severe (8-10) - Labs Labs: 08/09/17 07:50 08/09/17 07:50 Attending/Attestation - Attestation I have personally seen and examined this patient.: Yes I have fully participated in the care of the patient.: Yes I have reviewed all pertinent clinical information, including history, physical exam and plan: Yes Notes (Text): 08/09/17 19:10 Patient was seen and examined at 8:30 AM Also on ROS: LUQ pain that is very mild NO other complaints upon FULL ROS Also on Exam: GI: nontender to palpation, no guarding/rebound tenderness Ext: PPD on left lower anterior forearm already erythematous and raised at 15 mm , BCG Vaccine Scar on right deltoid (patient does not recall how old she was in [place] when she received it Await Quanteferon Gold F/U Sputum Culture/AFB/Aspergillus Ag and Ab Continue Respiratory Isolation Spoke with Office System Analyst Dr. Lew and hold off on starting RIPE therapy at this time. Perez Joy D.O.
[2017-08-09] MEDS ORDERED: Acetylcysteine 20% Inhal Soln (4ml) INH STA (19:08)
[2017-08-10] MEDS ORDERED: Acetylcysteine 20% Inhal Soln (4ml) INH ONE (06:30)
[2017-08-10] MEDS ORDERED: Albuterol 0.083% Inhal Sol (2.5 mg/3 mL) UD INH ONE (06:30)
[2017-08-10 07:45] LABS: BASO % 0.6 % (0.0-2.0); EOS # 0.1 K/uL (0.0-0.7); HEMOGLOBIN 14.4 g/dL (11.0-16.0); LYMPH # 1.6 K/uL (1.0-4.3); LYMPH % 33.5 % (20.0-40.0); MEAN CELL VOLUME 84.6 fL (81.0-99.0); MEAN CORPUSCULAR HEMOGLOBIN 29.1 pg (27.0-31.0); MEAN CORPUSCULAR HGB CONC 34.4 g/dL (33.0-37.0); MEAN PLATELET VOLUME 10.6 fL (7.2-11.7); MONO # 0.3 K/uL (0.0-0.8); MONO % 7.2 % (0.0-10.0); NEUT # 2.7 K/uL (1.8-7.0); NEUT % 56.7 % (50.0-75.0); NRBC % 0.1 % (0.0-2.0); RBC 4.96 Mil/uL (3.80-5.20); RED CELL DISTRIBUTION WIDTH 14.3 % (11.5-14.5); WHITE BLOOD COUNT 4.7 K/uL (4.8-10.8)
[2017-08-10 07:57] LABS: ALB/GLOB RATIO 1.2 (1.0-2.1); ALBUMIN 4.9 g/dL (3.5-5.0); ALT/SGPT 49 U/L (9-52); AST/SGOT 39 U/L (14-36); BLOOD UREA NITROGEN 13 mg/dL (7-17); CALCIUM 9.3 mg/dl (8.6-10.4); GFR AFRICAN-AMERICAN > 60; GFR NON-AFRICAN AMERICAN > 60
--- NOTE | 2017-08-10 09:42 | CP.PCM.PN ---
<Marcela Meléndez - Last Filed: 08/10/17 10:42> Subjective - Date & Time of Evaluation Date of Evaluation: 08/10/17 Time of Evaluation: 09:35 - Subjective Subjective: Progress Note Patient seen and examined with Dr. Perez Joy at bedside. Patient states she' s feeling well except for left upper quadrant pain that started after eating [place] fries last night. Patient also admits to acid reflux at the same time of onset. Patient states her BCG vaccine was 6 days ago. Patient is giving second sputum sample for sputum sample. Patient's PPD was also read at bedside today showing 20mm Patient denies cough with sputum production, able to submit two samples. Is aware that she is submitting one more sample tomorrow 08/11. Objective - Vital Signs/Intake and Output Vital Signs (last 24 hours): Temp Pulse Resp BP Pulse Ox 98.0 F 53 L 18 96/59 L 97 08/10/17 07:20 08/10/17 07:35 08/10/17 07:20 08/10/17 07:20 08/10/17 08:00 - Medications Medications: Current Medications Enoxaparin Sodium (Lovenox) 40 mg SC DAILY [facility] Last Admin: 08/09/17 10:48 Dose: 40 mg Famotidine (Pepcid) 20 mg PO BID [facility] Last Admin: 08/09/17 17:18 Dose: 20 mg Ketorolac Tromethamine (Toradol) 30 mg IVP Q6 PRN PRN Reason: Pain, severe (8-10) - Labs Labs: 08/10/17 07:25 08/10/17 07:25 - Head Exam Head Exam: ATRAUMATIC, NORMAL INSPECTION, NORMOCEPHALIC - Eye Exam Eye Exam: EOMI, Normal appearance Pupil Exam: NORMAL ACCOMODATION, PERRL - ENT Exam ENT Exam: Mucous Membranes Moist, Normal Exam, Normal External Ear Exam - Neck Exam Neck Exam: Full ROM, Normal Inspection. absent: Tenderness, Thyromegaly - Respiratory Exam Respiratory Exam: Clear to Ausculation Bilateral, NORMAL BREATHING PATTERN - Cardiovascular Exam Cardiovascular Exam: Bradycardia, REGULAR RHYTHM, +S1, +S2, Murmur (grade II/ III systolic murmer) - GI/Abdominal Exam GI & Abdominal Exam: Distended, Soft, Tenderness (mild tenderness), Normal Bowel Sounds. absent: Firm, Guarding, Rigid - Extremities Exam Extremities Exam: Full ROM, Normal Capillary Refill, Normal Inspection. absent : Pedal Edema, Tenderness - Back Exam Back Exam: Full ROM. absent: CVA tenderness (L), CVA tenderness (R) Additional comments: left forearm PPD Test: 20mm induration - Neurological Exam Neurological Exam: Alert, Awake, CN II-XII Intact, Oriented x3 - Psychiatric Exam Psychiatric exam: Normal Affect, Normal Mood - Skin Skin Exam: Dry, Intact, Normal Color, Warm Assessment and Plan - Assessment and Plan (Free Text) Assessment: Bronchiectasis/cavitary changes of the lungs Rule out TB -Patient currently has no pulmonary symptoms 08/10 -Pulmonary consulted, Dr. Vipin de leon appreciated -ID consulted, Dr. 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 Bilateral increased reticular changes may reflect interstitial pulmonary disease low such as an atypical pneumonitis or reactive airways disease -CT abd shows bilateral ground glass opacity -CT Chest shows diffuse bilateral ground-glass opacity affects the upper greater than lower segments of the bilateral upper and lower lobes as well as the right middle lobe with bronchiectasis or cavitary changes either from current or postinfectious process in the left apex. Cardiomegaly and evidence suggesting pulmonary artery hypertension -procal: low; unlikely bacterial source -Follow up sputum culture, AFBx3, PPD skin test, Quantiferon Gold 08/10 PPD skin test: 20mm induration Systolic murmur -Cardiology consult: Dr. Wisdom -EKG - NSR, KARISHMA x 3 negative -Follow up echocardiogram Transaminitis -Uptrending -Hepatitis panel negative -Continue to monitor Abdominal pain, resolving -CT abd shows nonacute abdomen pelvis examination. Hepatic steatosis. -Afebrile, no leukocytosis, negative lipase -Improved with toradol, discontinued -procal: low Acid Reflux -Pepcid Prophylactic measures -Pepcid -Lovenox Discussed with Dr. Perez Meléndez DO PGY1 <Perez Joy - Last Filed: 08/10/17 18:53> Objective - Vital Signs/Intake and Output Vital Signs (last 24 hours): Temp Pulse Resp BP Pulse Ox 98.2 F 61 20 100/60 96 08/10/17 16:00 08/10/17 17:46 08/10/17 16:00 08/10/17 16:00 08/10/17 16:00 - Medications Medications: Current Medications Acetylcysteine (Acetylcysteine 20%) 4 ml INH ONCE ONE Stop: 08/11/17 06:31 Albuterol Sulfate (Albuterol 0.083% Inhal Shruthi (2.5 Mg/3 Ml) Ud) 2.5 mg INH ONCE ONE Stop: 08/11/17 06:31 Enoxaparin Sodium (Lovenox) 40 mg SC DAILY [facility] Last Admin: 08/10/17 09:55 Dose: 40 mg Famotidine (Pepcid) 20 mg PO BID [facility] Last Admin: 08/10/17 17:35 Dose: 20 mg - Labs Labs: 08/10/17 07:25 08/10/17 07:25 Attending/Attestation - Attestation I have personally seen and examined this patient.: Yes I have fully participated in the care of the patient.: Yes I have reviewed all pertinent clinical information, including history, physical exam and plan: Yes
[2017-08-10] MEDS: Enoxaparin 40 mg Syringe SC SCH (09:55)
--- NOTE | 2017-08-10 11:00 | CP.PCM.PN ---
Subjective - Date & Time of Evaluation Date of Evaluation: 08/10/17 Time of Evaluation: 08:00 - Subjective Subjective: AFEB AFB SMEARS PENDING Objective - Vital Signs/Intake and Output Vital Signs (last 24 hours): Temp Pulse Resp BP Pulse Ox 98.0 F 53 L 18 96/59 L 97 08/10/17 07:20 08/10/17 07:35 08/10/17 07:20 08/10/17 07:20 08/10/17 08:00 - Medications Medications: Current Medications Acetylcysteine (Acetylcysteine 20%) 4 ml INH ONCE ONE Stop: 08/11/17 06:31 Albuterol Sulfate (Albuterol 0.083% Inhal Shruthi (2.5 Mg/3 Ml) Ud) 2.5 mg INH ONCE ONE Stop: 08/11/17 06:31 Enoxaparin Sodium (Lovenox) 40 mg SC DAILY [facility] Last Admin: 08/10/17 09:55 Dose: 40 mg Famotidine (Pepcid) 20 mg PO BID [facility] Last Admin: 08/10/17 09:55 Dose: 20 mg - Labs Labs: 08/10/17 07:25 08/10/17 07:25 - Constitutional Appears: Non-toxic, Chronically Ill - Head Exam Head Exam: NORMOCEPHALIC - Eye Exam Eye Exam: PERRL - ENT Exam ENT Exam: Mucous Membranes Dry - Neck Exam Neck Exam: absent: Lymphadenopathy - Respiratory Exam Respiratory Exam: Decreased Breath Sounds - Cardiovascular Exam Cardiovascular Exam: REGULAR RHYTHM, +S1, +S2 - GI/Abdominal Exam GI & Abdominal Exam: Distended, Soft - Rectal Exam Rectal Exam: Deferred - Exam Exam: NORMAL INSPECTION - Extremities Exam Extremities Exam: absent: Pedal Edema - Back Exam Back Exam: absent: CVA tenderness (L), CVA tenderness (R) - Neurological Exam Neurological Exam: Alert, Awake, Oriented x3 Assessment and Plan (1) Abdominal pain Status: Acute (2) Cavitary lesion of lung Status: Acute (3) Ground glass opacity present on imaging of lung Status: Acute
--- NOTE | 2017-08-10 12:19 | CP.PCM.PN ---
Subjective - Date & Time of Evaluation Date of Evaluation: 08/10/17 Time of Evaluation: 12:00 - Subjective Subjective: Workup by ID and pulmonary is still pending. Echo with normal LV, trace tricuspid regurgitation. No need for further cardiac workup for now Objective - Vital Signs/Intake and Output Vital Signs (last 24 hours): Temp Pulse Resp BP Pulse Ox 98.0 F 53 L 18 96/59 L 97 08/10/17 07:20 08/10/17 07:35 08/10/17 07:20 08/10/17 07:20 08/10/17 08:00 - Medications Medications: Current Medications Acetylcysteine (Acetylcysteine 20%) 4 ml INH ONCE ONE Stop: 08/11/17 06:31 Albuterol Sulfate (Albuterol 0.083% Inhal Shruthi (2.5 Mg/3 Ml) Ud) 2.5 mg INH ONCE ONE Stop: 08/11/17 06:31 Enoxaparin Sodium (Lovenox) 40 mg SC DAILY [facility] Last Admin: 08/10/17 09:55 Dose: 40 mg Famotidine (Pepcid) 20 mg PO BID [facility] Last Admin: 08/10/17 09:55 Dose: 20 mg - Labs Labs: 08/10/17 07:25 08/10/17 07:25 - Constitutional Appears: Non-toxic - Head Exam Head Exam: ATRAUMATIC - Eye Exam Eye Exam: EOMI - ENT Exam ENT Exam: Mucous Membranes Moist - Neck Exam Neck Exam: absent: Lymphadenopathy, Thyromegaly - Respiratory Exam Respiratory Exam: Clear to Ausculation Bilateral. absent: Rales - GI/Abdominal Exam GI & Abdominal Exam: Normal Bowel Sounds. absent: Organomegaly - Rectal Exam Rectal Exam: Deferred - Extremities Exam Extremities Exam: Normal Capillary Refill. absent: Calf Tenderness - Neurological Exam Neurological Exam: Alert, Oriented x3 - Psychiatric Exam Psychiatric exam: Normal Affect - Skin Skin Exam: Dry Assessment and Plan (1) Murmur, cardiac Assessment & Plan: asymptomatic TR Status: Acute
--- NOTE | 2017-08-10 15:06 | CP.PCM.PN ---
Subjective - Date & Time of Evaluation Date of Evaluation: 08/10/17 Time of Evaluation: 09:00 - Subjective Subjective: Reason for Consult - Pulmonary HTN, Cavitary Lesion, "Ground Glass" Lung Patient is a 46 year old female with a past medical history significant for childhood asthma and a "heart murmur," who presented to [facility] on 08/08 with complaints of "bloating" abdominal pain. Chest CT done in the ER showed diffuse ground glass appearance of the bilateral upper lung lobes , as well as scarring with cavitary changes of the left lung apex. Patient states she received the BCG vaccine [place] [employer] and denies any personal history of tuberculosis infection. Patient seen and examined sitting upright in a chair. Patient is comfortable conversational and denies cough, chest pain and shortness of breath. Patient is afebrile and saturating well on room air. Assessment/Plan 1. Rule out tuberculosis ( unlikely) AFP's and quantiferon gold ordered by medicine team. Will follow up results tomorrow and determine if patient require therapy. Aerosol precautions in place until further notice. 2. Asthma Patient has not had an attack since childhood and denies current respiratory difficulty. 3. Heart murmur Patient unsure which type of murmur, but auscultated to be pulmonary stenosis. Patient states she had it worked up by a marketing services specialist some years ago, who stated it required no further investigation. Objective - Vital Signs/Intake and Output Vital Signs (last 24 hours): Temp Pulse Resp BP Pulse Ox 98.0 F 53 L 18 96/59 L 98 08/10/17 07:20 08/10/17 07:35 08/10/17 07:20 08/10/17 07:20 08/10/17 12:00 - Medications Medications: Current Medications Acetylcysteine (Acetylcysteine 20%) 4 ml INH ONCE ONE Stop: 08/11/17 06:31 Albuterol Sulfate (Albuterol 0.083% Inhal Shruthi (2.5 Mg/3 Ml) Ud) 2.5 mg INH ONCE ONE Stop: 08/11/17 06:31 Enoxaparin Sodium (Lovenox) 40 mg SC DAILY [facility] Last Admin: 08/10/17 09:55 Dose: 40 mg Famotidine (Pepcid) 20 mg PO BID [facility] Last Admin: 08/10/17 09:55 Dose: 20 mg - Labs Labs: 08/10/17 07:25 08/10/17 07:25
--- NOTE | 2017-08-10 23:20 | CARD ---
APPROVED REPORT EXAM: Two-dimensional and M-mode echocardiogram with Doppler and color Doppler. Other Information Quality : GoodRhythm : INDICATION Pulmonary Hypertention Murmur 2D DIMENSIONS IVSd1.0 (0.7-1.1cm)LVDd4.6 (3.9-5.9cm) PWd0.8 (0.7-1.1cm)LVDs3.2 (2.5-4.0cm) FS (%) 30.4 %LVEF (%)60.0 (>50%) M-Mode DIMENSIONS Left Atrium (MM)3.41 (2.5-4.0cm)IVSd1.11 (0.7-1.1cm) Aortic Root3.27 (2.2-3.7cm)LVDd4.46 (4.0-5.6cm) Aortic Cusp Exc.2.10 (1.5-2.0cm)PWd0.76 (0.7-1.1cm) FS (%) 33 %LVDs2.98 (2.0-3.8cm) LVEF (%)62 (>50%) Mitral Valve MV E Szvlyoni23.2cm/sMV A Pqdgloco12.3cm/sE/A ratio0.9 TDI E/Lateral E'0.0E/Medial E'0.0 Tricuspid Valve TR Peak [id number]/sTR Peak Gr.[id number] LEFT VENTRICLE The left ventricle is normal size. There is normal left ventricular wall thickness. Left ventricle systolic functionsystolic function is normal. The Ejection Fraction is 60-65%. There is normal LV segmental wall motion. The left ventricular diastolic function is normal. No left ventricle thrombus noted on this study. RIGHT VENTRICLE The right ventricle is normal size. The right ventricular systolic function is normal. ATRIA The left atrium size is normal. The right atrium size is normal. AORTIC VALVE The aortic valve is mildly sclerotic. The aortic valve is trileaflet. No aortic regurgitation is present. There is no aortic valvular stenosis. There is no aortic valvular vegetation. MITRAL VALVE Mitral annular calcification is mild. There is no evidence of mitral valve prolapse. There is no mitral valve stenosis. There is no mitral valve regurgitation noted. TRICUSPID VALVE The tricuspid valve is normal in structure. There is trace to mild tricuspid regurgitation. Right ventricular systolic pressure is estimated at less than 30 mmHg. There is no pulmonary hypertension. There is no tricuspid valve prolapse or vegetation. There is no tricuspid valve stenosis. PULMONIC VALVE The pulmonary valve is normal in structure. There is trace pulmonic valvular regurgitation. There is no pulmonic valvular stenosis. GREAT VESSELS The aortic root is normal in size. The IVC is normal in size and collapses >50% with inspiration. PERICARDIAL EFFUSION There is no pericardial effusion. <Conclusion> The left ventricle is normal size. Left ventricle systolic functionsystolic function is normal. The Ejection Fraction is 60-65%. The left ventricular diastolic function is normal. The right ventricle is normal size. The right ventricular systolic function is normal. The left atrium size is normal. The right atrium size is normal. There is trace to mild tricuspid regurgitation. There is trace pulmonic valvular regurgitation.
[2017-08-11] MEDS ORDERED: Acetylcysteine 20% Inhal Soln (4ml) INH ONE (06:30)
[2017-08-11] MEDS ORDERED: Albuterol 0.083% Inhal Sol (2.5 mg/3 mL) UD INH ONE (06:30)
[2017-08-11 07:36] LABS: BASO % 0.5 % (0.0-2.0); EOS # 0.1 K/uL (0.0-0.7); EOS % 2.7 % (0.0-4.0); HEMOGLOBIN 14.2 g/dL (11.0-16.0); LYMPH # 1.4 K/uL (1.0-4.3); LYMPH % 32.3 % (20.0-40.0); MEAN CELL VOLUME 84.5 fL (81.0-99.0); MEAN CORPUSCULAR HEMOGLOBIN 29.5 pg (27.0-31.0); MEAN CORPUSCULAR HGB CONC 34.9 g/dL (33.0-37.0); MEAN PLATELET VOLUME 10.5 fL (7.2-11.7); MONO # 0.4 K/uL (0.0-0.8); MONO % 9.1 % (0.0-10.0); NEUT # 2.4 K/uL (1.8-7.0); NEUT % 55.4 % (50.0-75.0); NRBC % 0.1 % (0.0-2.0); RBC 4.83 Mil/uL (3.80-5.20); RED CELL DISTRIBUTION WIDTH 14.2 % (11.5-14.5); WHITE BLOOD COUNT 4.3 K/uL (4.8-10.8)
[2017-08-11 07:52] LABS: ALB/GLOB RATIO 1.1 (1.0-2.1); ALBUMIN 4.6 g/dL (3.5-5.0); ALT/SGPT 45 U/L (9-52); AST/SGOT 34 U/L (14-36); BLOOD UREA NITROGEN 12 mg/dL (7-17); CALCIUM 9.2 mg/dl (8.6-10.4); GFR AFRICAN-AMERICAN > 60; GFR NON-AFRICAN AMERICAN > 60
--- NOTE | 2017-08-11 08:11 | CP.PCM.PN ---
Addendum entered and electronically signed by Carrol Nichols DO 08/11/17 11:05 : Quantiferon Gold + --- will ultimately need RIPE therapy. Pending Pulmonary recommendations for possible bronchoscopy - as some MAC organisms can cause false + quantiferon and cavitary lesions. Original Note: <Carrol Nichols - Last Filed: 08/11/17 07:59> Subjective - Date & Time of Evaluation Date of Evaluation: 08/11/17 Time of Evaluation: 08:00 - Subjective Subjective: Medicine Note for Hospitalist Service - Dr. Perez Joy Patient was seen and examined at bedside. Admits to some faint LUQ pain otherwise no complaints. Denied fever, chills, headache, chest pain, SOB, abdominal pain, n/v/d/c, or urinary symptoms. Objective - Vital Signs/Intake and Output Vital Signs (last 24 hours): Temp Pulse Resp BP Pulse Ox 98.2 F 67 18 117/67 97 08/10/17 23:30 08/10/17 23:30 08/10/17 23:30 08/10/17 23:30 08/10/17 23:30 - Medications Medications: Current Medications Enoxaparin Sodium (Lovenox) 40 mg SC DAILY [facility] Last Admin: 08/10/17 09:55 Dose: 40 mg Famotidine (Pepcid) 20 mg PO BID [facility] Last Admin: 08/10/17 17:35 Dose: 20 mg - Labs Labs: 08/11/17 07:12 08/11/17 07:12 - Additional Findings Additional findings: - Head Exam Head Exam: ATRAUMATIC, NORMAL INSPECTION, NORMOCEPHALIC - Eye Exam Eye Exam: EOMI, Normal appearance Pupil Exam: NORMAL ACCOMODATION, PERRL - ENT Exam ENT Exam: Mucous Membranes Moist, Normal Exam, Normal External Ear Exam - Neck Exam Neck Exam: Full ROM, Normal Inspection. absent: Tenderness, Thyromegaly - Respiratory Exam Respiratory Exam: Clear to Ausculation Bilateral, NORMAL BREATHING PATTERN - Cardiovascular Exam Cardiovascular Exam: Bradycardia, REGULAR RHYTHM, +S1, +S2, Murmur (grade II/ III systolic murmer) - GI/Abdominal Exam GI & Abdominal Exam: Distended, Soft, Tenderness (mild tenderness), Normal Bowel Sounds. absent: Firm, Guarding, Rigid - Extremities Exam Extremities Exam: Full ROM, Normal Capillary Refill, Normal Inspection. absent : Pedal Edema, Tenderness - Back Exam Back Exam: Full ROM. absent: CVA tenderness (L), CVA tenderness (R) Additional comments: left forearm PPD Test: 20mm induration - Neurological Exam Neurological Exam: Alert, Awake, CN II-XII Intact, Oriented x3 - Psychiatric Exam Psychiatric exam: Normal Affect, Normal Mood - Skin Skin Exam: Dry, Intact, Normal Color, Warm Assessment and Plan - Assessment and Plan (Free Text) Plan: Bronchiectasis/cavitary changes of the lungs Rule out Latent TB -Patient currently has no pulmonary symptoms 08/10 -Pulmonary consulted, Dr. Lew help appreciated -ID consulted, Dr. 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 Bilateral increased reticular changes may reflect interstitial pulmonary disease low such as an atypical pneumonitis or reactive airways disease -CT abd shows bilateral ground glass opacity -CT Chest shows diffuse bilateral ground-glass opacity affects the upper greater than lower segments of the bilateral upper and lower lobes as well as the right middle lobe with bronchiectasis or cavitary changes either from current or postinfectious process in the left apex. Cardiomegaly and evidence suggesting pulmonary artery hypertension Labs: -procal: low; unlikely bacterial source - 08/10 PPD skin test: 20mm induration -Follow up sputum culture, AFBx3, Quantiferon Gold Hx of heart murmur - Cardiology consult: Dr. Wisdom - EKG - NSR, KARISHMA x 3 negative - Echo: LVEF 60-65%, mild TR, Pulmonic valvular regurgitation GERD -Pepcid Abdominal pain, resolving -CT abd shows nonacute abdomen pelvis examination. Hepatic steatosis. -Afebrile, no leukocytosis, negative lipase -Improved with toradol, discontinued -procal: low Transaminitis -- RESOLVED -Hepatitis panel negative -Continue to monitor Prophylactic measures -Pepcid -Lovenox Disposition: Pending AFBx3 and Quantiferon Gold results to rule out latent TB. DW Dr. Perez Joy, Carrol Nichols DO, PGY-1 <Perez Joy - Last Filed: 08/11/17 17:29> Objective - Vital Signs/Intake and Output Vital Signs (last 24 hours): Temp Pulse Resp BP Pulse Ox 98.1 F 60 20 123/56 L 98 08/11/17 15:51 08/11/17 15:51 08/11/17 15:51 08/11/17 15:51 08/11/17 15:51 Intake and Output: 08/11/17 08/11/17 06:59 18:59 Intake Total 500 Balance 500 - Medications Medications: Current Medications Acetylcysteine (Acetylcysteine 20%) 4 ml INH ONCE ONE Stop: 08/12/17 06:31 Albuterol Sulfate (Albuterol 0.083% Inhal Shruthi (2.5 Mg/3 Ml) Ud) 2.5 mg INH ONCE ONE Stop: 08/12/17 06:31 Enoxaparin Sodium (Lovenox) 40 mg SC DAILY [facility] Last Admin: 08/11/17 09:08 Dose: 40 mg Famotidine (Pepcid) 20 mg PO BID [facility] Last Admin: 08/11/17 09:08 Dose: 20 mg - Labs Labs: 08/11/17 07:12 08/11/17 07:12 Attending/Attestation - Attestation I have personally seen and examined this patient.: Yes I have fully participated in the care of the patient.: Yes I have reviewed all pertinent clinical information, including history, physical exam and plan: Yes Notes (Text): 08/11/17 17:28 Patient was seen and examined earlier by me at 11:45 AM and then again with resident Dr. Nichols at 4 PM. Exam, assessment and plan were gone over with the resident. Spoke with Game Design Instructor Dr. Lew and patient is for Bronchoscopy 08/12/17. Perez Joy D.O.
[2017-08-11] MEDS: Enoxaparin 40 mg Syringe SC SCH (09:08)
[2017-08-11 10:15] LABS: TB ANTIGEN MINUS NIL 2.34 IU/mL
--- NOTE | 2017-08-11 15:27 | CP.PCM.PN ---
Subjective - Date & Time of Evaluation Date of Evaluation: 08/11/17 Time of Evaluation: 08:00 - Subjective Subjective: afeb no cough + quantiferon ? MAC doubt active TB may need bronchoscopy follow upo in TB clinic Objective - Vital Signs/Intake and Output Vital Signs (last 24 hours): Temp Pulse Resp BP Pulse Ox 97.7 F 51 L 20 115/74 95 08/11/17 07:15 08/11/17 08:03 08/11/17 07:15 08/11/17 07:15 08/11/17 07:15 - Medications Medications: Current Medications Acetylcysteine (Acetylcysteine 20%) 4 ml INH ONCE ONE Stop: 08/12/17 06:31 Albuterol Sulfate (Albuterol 0.083% Inhal Shruthi (2.5 Mg/3 Ml) Ud) 2.5 mg INH ONCE ONE Stop: 08/12/17 06:31 Enoxaparin Sodium (Lovenox) 40 mg SC DAILY [facility] Last Admin: 08/11/17 09:08 Dose: 40 mg Famotidine (Pepcid) 20 mg PO BID [facility] Last Admin: 08/11/17 09:08 Dose: 20 mg - Labs Labs: 08/11/17 07:12 08/11/17 07:12 Assessment and Plan (1) Abdominal pain Status: Acute (2) Cavitary lesion of lung Status: Acute (3) Ground glass opacity present on imaging of lung Status: Acute
--- NOTE | 2017-08-11 17:56 | CP.PCM.PN ---
Subjective - Date & Time of Evaluation Date of Evaluation: 08/11/17 Time of Evaluation: 11:50 - Subjective Subjective: Patient seen and examined at bedside. Patient denies respiratory distress, but seems anxious to go home. Patient denies chest pain, palpitations and cough. Quantiferon TB test resulted as positive, but patient is afebrile and not currently symptomatic. Assessment/Plan 1. Rule out TB bronchoscopy. Objective - Vital Signs/Intake and Output Vital Signs (last 24 hours): Temp Pulse Resp BP Pulse Ox 98.1 F 56 L 20 123/56 L 98 08/11/17 15:51 08/11/17 16:00 08/11/17 15:51 08/11/17 15:51 08/11/17 15:51 Intake and Output: 08/11/17 08/11/17 06:59 18:59 Intake Total 500 Balance 500 - Medications Medications: Current Medications Acetylcysteine (Acetylcysteine 20%) 4 ml INH ONCE ONE Stop: 08/12/17 06:31 Albuterol Sulfate (Albuterol 0.083% Inhal Shruthi (2.5 Mg/3 Ml) Ud) 2.5 mg INH ONCE ONE Stop: 08/12/17 06:31 Enoxaparin Sodium (Lovenox) 40 mg SC DAILY [facility] Last Admin: 08/11/17 09:08 Dose: 40 mg Famotidine (Pepcid) 20 mg PO BID [facility] Last Admin: 08/11/17 17:32 Dose: 20 mg - Labs Labs: 08/11/17 07:12 08/11/17 07:12
[2017-08-12] MEDS ORDERED: Acetylcysteine 20% Inhal Soln (4ml) INH ONE (06:30)
[2017-08-12] MEDS ORDERED: Albuterol 0.083% Inhal Sol (2.5 mg/3 mL) UD INH ONE (06:30)
--- NOTE | 2017-08-12 07:05 | CP.PCM.PN ---
<Carrol Nichols - Last Filed: 08/12/17 07:02> Subjective - Date & Time of Evaluation Date of Evaluation: 08/12/17 Time of Evaluation: 07:00 - Subjective Subjective: Medicine Note for Hospitalist Service - Dr. Perez Joy Patient was seen and examined at bedside. Patient is for bronchoscopy today with Dr. Lew. No acute complaints. Denied fever, chills, headache, chest pain, SOB, abdominal pain, n/v/d/c, or urinary symptoms. Objective - Vital Signs/Intake and Output Vital Signs (last 24 hours): Temp Pulse Resp BP Pulse Ox 97.7 F 56 L 20 100/51 L 98 08/11/17 23:32 08/12/17 01:00 08/11/17 23:32 08/11/17 23:32 08/11/17 23:32 - Medications Medications: Current Medications Enoxaparin Sodium (Lovenox) 40 mg SC DAILY [facility] Last Admin: 08/11/17 09:08 Dose: 40 mg Famotidine (Pepcid) 20 mg PO BID [facility] Last Admin: 08/11/17 17:32 Dose: 20 mg - Labs Labs: 08/11/17 07:12 08/11/17 07:12 - Additional Findings Additional findings: - Head Exam Head Exam: ATRAUMATIC, NORMAL INSPECTION, NORMOCEPHALIC - Eye Exam Eye Exam: EOMI, Normal appearance Pupil Exam: NORMAL ACCOMODATION, PERRL - ENT Exam ENT Exam: Mucous Membranes Moist, Normal Exam, Normal External Ear Exam - Neck Exam Neck Exam: Full ROM, Normal Inspection. absent: Tenderness, Thyromegaly - Respiratory Exam Respiratory Exam: Clear to Ausculation Bilateral, NORMAL BREATHING PATTERN - Cardiovascular Exam Cardiovascular Exam: Bradycardia, REGULAR RHYTHM, +S1, +S2, Murmur (grade II/ III systolic murmer) - GI/Abdominal Exam GI & Abdominal Exam: Distended, Soft, Tenderness (mild tenderness), Normal Bowel Sounds. absent: Firm, Guarding, Rigid - Extremities Exam Extremities Exam: Full ROM, Normal Capillary Refill, Normal Inspection. absent : Pedal Edema, Tenderness - Back Exam Back Exam: Full ROM. absent: CVA tenderness (L), CVA tenderness (R) Additional comments: left forearm PPD Test: 20mm induration - Neurological Exam Neurological Exam: Alert, Awake, CN II-XII Intact, Oriented x3 - Psychiatric Exam Psychiatric exam: Normal Affect, Normal Mood - Skin Skin Exam: Dry, Intact, Normal Color, Warm Assessment and Plan - Assessment and Plan (Free Text) Plan: Bronchiectasis/cavitary changes of the lungs Rule out Latent TB -Patient currently has no pulmonary symptoms 08/10 -Pulmonary consulted, Dr. Lew help appreciated -ID consulted, Dr. 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 Bilateral increased reticular changes may reflect interstitial pulmonary disease low such as an atypical pneumonitis or reactive airways disease -CT abd shows bilateral ground glass opacity -CT Chest shows diffuse bilateral ground-glass opacity affects the upper greater than lower segments of the bilateral upper and lower lobes as well as the right middle lobe with bronchiectasis or cavitary changes either from current or postinfectious process in the left apex. Cardiomegaly and evidence suggesting pulmonary artery hypertension Labs: -procal: low; unlikely bacterial source - 08/10 PPD skin test: 20mm induration - Quantiferon Gold + --- will ultimately need RIPE therapy - Bronchoscopy today with Dr. Lew 08/12/17 - Sputum culture: no growth, AFBx2 no acid fast bacilli noted, pending last AFB Hx of heart murmur - Cardiology consult: Dr. Wisdom - EKG - NSR, KARISHMA x 3 negative - Echo: LVEF 60-65%, mild TR, Pulmonic valvular regurgitation GERD -Pepcid Abdominal pain, resolving -CT abd shows nonacute abdomen pelvis examination. Hepatic steatosis. -Afebrile, no leukocytosis, negative lipase -Improved with toradol, discontinued -procal: low Transaminitis -- RESOLVED -Hepatitis panel negative -Continue to monitor Prophylactic measures -Pepcid -Lovenox Disposition: Pending AFBx1 and Bronchoscopy results to rule out active versus latent TB DW Dr. Perez Joy, Carrol Nichols DO, PGY-1 <Perez Joy - Last Filed: 08/13/17 18:41> Objective - Vital Signs/Intake and Output Vital Signs (last 24 hours): Temp Pulse Resp BP Pulse Ox 98 F 58 L 18 100/61 96 08/13/17 15:24 08/13/17 15:24 08/13/17 15:24 08/13/17 15:24 08/13/17 15:24 Intake and Output: 08/13/17 08/13/17 06:59 18:59 Intake Total 850 Balance 850 - Medications Medications: Current Medications Acetaminophen (Tylenol 325mg Tab) 650 mg PO Q6 PRN PRN Reason: Headache Last Admin: 08/12/17 15:44 Dose: 650 mg Enoxaparin Sodium (Lovenox) 40 mg SC DAILY [facility] Last Admin: 08/13/17 11:13 Dose: 40 mg Famotidine (Pepcid) 20 mg PO BID [facility] Last Admin: 08/13/17 18:13 Dose: 20 mg - Labs Labs: 08/13/17 07:38 08/13/17 07:38 Attending/Attestation - Attestation I have personally seen and examined this patient.: Yes I have fully participated in the care of the patient.: Yes I have reviewed all pertinent clinical information, including history, physical exam and plan: Yes Notes (Text): 08/13/17 18:40 Patient was seen and examined with resident Dr. Mark Nichols on 08/12/17. Exam, assessment and plan were gone over with Dr. Nichols. Perez Joy D.O.
[2017-08-12 07:58] LABS: BASO % 0.5 % (0.0-2.0); EOS # 0.1 K/uL (0.0-0.7); EOS % 2.3 % (0.0-4.0); HEMOGLOBIN 14.1 g/dL (11.0-16.0); LYMPH # 1.7 K/uL (1.0-4.3); LYMPH % 39.5 % (20.0-40.0); MEAN CELL VOLUME 84.8 fL (81.0-99.0); MEAN CORPUSCULAR HEMOGLOBIN 29.3 pg (27.0-31.0); MEAN CORPUSCULAR HGB CONC 34.6 g/dL (33.0-37.0); MEAN PLATELET VOLUME 10.9 fL (7.2-11.7); MONO # 0.4 K/uL (0.0-0.8); MONO % 9.4 % (0.0-10.0); NEUT # 2.1 K/uL (1.8-7.0); NEUT % 48.3 % (50.0-75.0); NRBC % 0.1 % (0.0-2.0); RBC 4.8 Mil/uL (3.80-5.20); RED CELL DISTRIBUTION WIDTH 13.9 % (11.5-14.5); WHITE BLOOD COUNT 4.3 K/uL (4.8-10.8)
[2017-08-12 08:11] LABS: ALB/GLOB RATIO 1.1 (1.0-2.1); ALBUMIN 4.2 g/dL (3.5-5.0); ALT/SGPT 47 U/L (9-52); AST/SGOT 31 U/L (14-36); BLOOD UREA NITROGEN 13 mg/dL (7-17); CALCIUM 9.2 mg/dl (8.6-10.4); GFR AFRICAN-AMERICAN > 60; GFR NON-AFRICAN AMERICAN > 60
[2017-08-12] MEDS ORDERED: Lidocaine 2% MPF (5 ml) Inj ONE (09:46)
[2017-08-12] MEDS ORDERED: EPINEPHrine 1 mg/ml (1:1000) Inj ONE (09:46)
[2017-08-12] MEDS ORDERED: Midazolam 2 MG/2 ML VIAL ONE ×2 (10:24→10:29)
[2017-08-12] MEDS ORDERED: Propofol 10 mg/ml Inj (20 ML) ONE (10:25)
[2017-08-12] MEDS ORDERED: Lidocaine Hydrochloride 5 ML INJ ONE (10:29)
--- NOTE | 2017-08-12 13:03 | RAD ---
HISTORY: post bronchoscopy to r/o pneumothorax COMPARISON: 08/08/2017. FINDINGS: LUNGS: The right lung is well inflated. There is haziness in the right upper and lower lobes. There are fibrotic/ cavitary changes in the left upper lower with low lung volume PLEURA: No significant pleural effusion identified, no pneumothorax apparent. CARDIOVASCULAR: There is persistent mild cardiomegaly. OSSEOUS STRUCTURES: No significant abnormalities. VISUALIZED UPPER ABDOMEN: Normal. OTHER FINDINGS: None. IMPRESSION: No pneumothorax. Stable fibrocavitary changes in the left upper lobe. Haziness in the right upper and lower lobes which may represent alveolar edema or nonspecific infection follow-up is advised.
--- NOTE | 2017-08-13 06:04 | CARD ---
APPROVED REPORT EKG Measurement Heart [id number] <Conclusion> Marked sinus bradycardia Abnormal ECG
--- NOTE | 2017-08-13 07:05 | CP.PCM.PN ---
<Billie Hartley - Last Filed: 08/13/17 10:43> Subjective - Date & Time of Evaluation Date of Evaluation: 08/13/17 Time of Evaluation: 07:00 - Subjective Subjective: Medicine Progress Note: Patient was seen and examined at bedside. Patient is s/p bronchoscopy with Dr. Lew. No acute complaints. Denies fever, chills, headache, chest pain, SOB, abdominal pain, n/v/d/c, or urinary symptoms. Objective - Vital Signs/Intake and Output Vital Signs (last 24 hours): Temp Pulse Resp BP Pulse Ox 97.6 F 50 L 20 101/62 97 08/12/17 23:15 08/12/17 23:15 08/12/17 23:15 08/12/17 23:15 08/12/17 23:15 - Medications Medications: Current Medications Acetaminophen (Tylenol 325mg Tab) 650 mg PO Q6 PRN PRN Reason: Headache Last Admin: 08/12/17 15:44 Dose: 650 mg Enoxaparin Sodium (Lovenox) 40 mg SC DAILY [facility] Last Admin: 08/11/17 09:08 Dose: 40 mg Famotidine (Pepcid) 20 mg PO BID [facility] Last Admin: 08/12/17 18:00 Dose: 20 mg - Labs Labs: 08/12/17 07:32 08/12/17 07:32 - Constitutional Appears: No Acute Distress - Head Exam Head Exam: ATRAUMATIC, NORMAL INSPECTION - Eye Exam Eye Exam: EOMI, Normal appearance - ENT Exam ENT Exam: Mucous Membranes Moist - Respiratory Exam Respiratory Exam: Clear to Ausculation Bilateral, NORMAL BREATHING PATTERN - Cardiovascular Exam Cardiovascular Exam: REGULAR RHYTHM, +S1, +S2 - GI/Abdominal Exam GI & Abdominal Exam: Distended, Soft, Normal Bowel Sounds - Extremities Exam Extremities Exam: Normal Inspection - Neurological Exam Neurological Exam: Alert, Awake, Oriented x3 - Psychiatric Exam Psychiatric exam: Normal Affect - Skin Additional comments: left forearm PPD Test: 20mm induration Assessment and Plan - Assessment and Plan (Free Text) Assessment: Bronchiectasis/cavitary changes of the lungs Rule out Latent TB -Patient currently has no pulmonary symptoms 08/10 -Pulmonary consulted, Dr. Lew help appreciated -ID consulted, Dr. 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 Bilateral increased reticular changes may reflect interstitial pulmonary disease low such as an atypical pneumonitis or reactive airways disease -CT abd shows bilateral ground glass opacity -CT Chest shows diffuse bilateral ground-glass opacity affects the upper greater than lower segments of the bilateral upper and lower lobes as well as the right middle lobe with bronchiectasis or cavitary changes either from current or postinfectious process in the left apex. Cardiomegaly and evidence suggesting pulmonary artery hypertension Labs: -procal: low; unlikely bacterial source - 08/10 PPD skin test: 20mm induration - Quantiferon Gold + --- will possibly need RIPE therapy - Bronchoscopy today with Dr. Lew 08/12/17 - Sputum culture: no growth, AFBx2 no acid fast bacilli noted, pending last AFB Hx of heart murmur - Cardiology consult: Dr. Wisdom - EKG - NSR, KARISHMA x 3 negative - Echo: LVEF 60-65%, mild TR, Pulmonic valvular regurgitation GERD -Pepcid Abdominal pain, resolving -CT abd shows nonacute abdomen pelvis examination. Hepatic steatosis. -Afebrile, no leukocytosis, negative lipase -Improved with toradol, discontinued -procal: low Transaminitis -- RESOLVED -Hepatitis panel negative -Continue to monitor Prophylactic measures -Pepcid -Lovenox Disposition: Pending AFBx1 and Bronchoscopy results to rule out active versus latent TB Case discussed with Dr. Perez Hartley PGY-1 <Perez Joy - Last Filed: 08/13/17 18:40> Objective - Vital Signs/Intake and Output Vital Signs (last 24 hours): Temp Pulse Resp BP Pulse Ox 98 F 58 L 18 100/61 96 08/13/17 15:24 08/13/17 15:24 08/13/17 15:24 08/13/17 15:24 08/13/17 15:24 Intake and Output: 08/13/17 08/13/17 06:59 18:59 Intake Total 850 Balance 850 - Medications Medications: Current Medications Acetaminophen (Tylenol 325mg Tab) 650 mg PO Q6 PRN PRN Reason: Headache Last Admin: 08/12/17 15:44 Dose: 650 mg Enoxaparin Sodium (Lovenox) 40 mg SC DAILY [facility] Last Admin: 08/13/17 11:13 Dose: 40 mg Famotidine (Pepcid) 20 mg PO BID [facility] Last Admin: 08/13/17 18:13 Dose: 20 mg - Labs Labs: 08/13/17 07:38 08/13/17 07:38 Attending/Attestation - Attestation I have personally seen and examined this patient.: Yes I have fully participated in the care of the patient.: Yes I have reviewed all pertinent clinical information, including history, physical exam and plan: Yes Notes (Text): 08/13/17 18:39 Patient was seen and examined with resident Dr. Zarina Hartley Exam, assessment and plan were gone over with Dr. Naeem Joy D.O.
[2017-08-13 07:56] LABS: BASO % 0.4 % (0.0-2.0); EOS # 0.1 K/uL (0.0-0.7); EOS % 1.6 % (0.0-4.0); HEMOGLOBIN 14.2 g/dL (11.0-16.0); LYMPH # 1.3 K/uL (1.0-4.3); MEAN CELL VOLUME 85.1 fL (81.0-99.0); MEAN CORPUSCULAR HEMOGLOBIN 29.3 pg (27.0-31.0); MEAN CORPUSCULAR HGB CONC 34.4 g/dL (33.0-37.0); MEAN PLATELET VOLUME 10.8 fL (7.2-11.7); MONO # 0.3 K/uL (0.0-0.8); MONO % 5.9 % (0.0-10.0); NEUT % 69.1 % (50.0-75.0); NRBC % 0.1 % (0.0-2.0); RBC 4.86 Mil/uL (3.80-5.20); RED CELL DISTRIBUTION WIDTH 13.8 % (11.5-14.5); WHITE BLOOD COUNT 5.8 K/uL (4.8-10.8)
[2017-08-13 08:19] LABS: ALB/GLOB RATIO 1.1 (1.0-2.1); ALBUMIN 4.2 g/dL (3.5-5.0); ALT/SGPT 38 U/L (9-52); AST/SGOT 34 U/L (14-36); BLOOD UREA NITROGEN 15 mg/dL (7-17); CALCIUM 9.4 mg/dl (8.6-10.4); GFR AFRICAN-AMERICAN > 60; GFR NON-AFRICAN AMERICAN > 60
[2017-08-13] MEDS: Enoxaparin 40 mg Syringe SC SCH (11:13)
--- NOTE | 2017-08-13 15:18 | CP.PCM.PN ---
Subjective - Date & Time of Evaluation Date of Evaluation: 08/13/17 Time of Evaluation: 10:00 - Subjective Subjective: Patient is post-procedure day one, s/p bronchoscopy. Patient seen and examined at bedside. Patient not complaining of cough or shortness of breath. Currently awaiting bronchoscopy cultures to distinguish MAC vs. tuberculosis. CXR done yesterday after bronchoscopy showed no pneumothorax. Assessment/Plan 1. Rule out tuberculosis Low suspicion at this point; Patient afebrile without current cough or shortness of breath. Follow-up bronchoscopic cultures and treat accordingly. Objective - Vital Signs/Intake and Output Vital Signs (last 24 hours): Temp Pulse Resp BP Pulse Ox 98.2 F 54 L 20 108/57 L 98 08/13/17 07:10 08/13/17 07:10 08/13/17 07:10 08/13/17 07:10 08/13/17 07:10 - Medications Medications: Current Medications Acetaminophen (Tylenol 325mg Tab) 650 mg PO Q6 PRN PRN Reason: Headache Last Admin: 08/12/17 15:44 Dose: 650 mg Enoxaparin Sodium (Lovenox) 40 mg SC DAILY [facility] Last Admin: 08/13/17 11:13 Dose: 40 mg Famotidine (Pepcid) 20 mg PO BID [facility] Last Admin: 08/13/17 11:13 Dose: 20 mg - Labs Labs: 08/13/17 07:38 08/13/17 07:38
[2017-08-13 23:58] VITALS: RESP 20
--- NOTE | 2017-08-14 01:01 | CP.PCM.PN ---
<Carrol Nichols - Last Filed: 08/14/17 01:22> Subjective - Date & Time of Evaluation Date of Evaluation: 08/14/17 Time of Evaluation: :02 - Subjective Subjective: Medicine Note for Hospitalist Service - Dr. Perez Joy Patient was seen and examined at bedside. Patient resting comfortably in bed. No acute complaints. Denied fever, chills, headache, chest pain, SOB, abdominal pain, n/v/d/c, or urinary symptoms. Objective - Vital Signs/Intake and Output Vital Signs (last 24 hours): Temp Pulse Resp BP Pulse Ox 98.5 F 75 20 104/59 L 97 08/13/17 23:05 08/13/17 23:05 08/13/17 23:05 08/13/17 23:05 08/13/17 23:05 Intake and Output: 08/13/17 08/14/17 18:59 06:59 Intake Total 850 Balance 850 - Medications Medications: Current Medications Acetaminophen (Tylenol 325mg Tab) 650 mg PO Q6 PRN PRN Reason: Headache Last Admin: 08/12/17 15:44 Dose: 650 mg Enoxaparin Sodium (Lovenox) 40 mg SC DAILY [facility] Last Admin: 08/13/17 11:13 Dose: 40 mg Famotidine (Pepcid) 20 mg PO BID [facility] Last Admin: 08/13/17 18:13 Dose: 20 mg - Labs Labs: 08/13/17 07:38 08/13/17 07:38 - Additional Findings Additional findings: - Constitutional Appears: No Acute Distress - Head Exam Head Exam: ATRAUMATIC, NORMAL INSPECTION - Eye Exam Eye Exam: EOMI, Normal appearance - ENT Exam ENT Exam: Mucous Membranes Moist - Respiratory Exam Respiratory Exam: Clear to Ausculation Bilateral, NORMAL BREATHING PATTERN - Cardiovascular Exam Cardiovascular Exam: REGULAR RHYTHM, +S1, +S2 - GI/Abdominal Exam GI & Abdominal Exam: Distended, Soft, Normal Bowel Sounds - Extremities Exam Extremities Exam: Normal Inspection - Neurological Exam Neurological Exam: Alert, Awake, Oriented x3 - Psychiatric Exam Psychiatric exam: Normal Affect - Skin Additional comments: left forearm PPD Test: 20mm induration Assessment and Plan - Assessment and Plan (Free Text) Plan: Bronchiectasis/cavitary changes of the lungs Rule out Latent TB -Patient currently has no pulmonary symptoms 08/10 -Pulmonary consulted, Dr. Vipin help appreciated -ID consulted, Dr. 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 Bilateral increased reticular changes may reflect interstitial pulmonary disease low such as an atypical pneumonitis or reactive airways disease -CT abd shows bilateral ground glass opacity -CT Chest shows diffuse bilateral ground-glass opacity affects the upper greater than lower segments of the bilateral upper and lower lobes as well as the right middle lobe with bronchiectasis or cavitary changes either from current or postinfectious process in the left apex. Cardiomegaly and evidence suggesting pulmonary artery hypertension Labs: -procal: low; unlikely bacterial source - 08/10 PPD skin test: 20mm induration - Quantiferon Gold + --- will possibly need RIPE therapy, [employer] Sia spoke with [facility] - Bronchoscopy with Dr. Lew 08/12/17 - Sputum culture: no growth, AFBx2 no acid fast bacilli noted, pending last AFB and bronchial washings Hx of heart murmur - Cardiology consult: Dr. Wisdom - EKG - NSR, KARISHMA x 3 negative - Echo: LVEF 60-65%, mild TR, Pulmonic valvular regurgitation GERD -Pepcid Abdominal pain, resolving -CT abd shows nonacute abdomen pelvis examination. Hepatic steatosis. -Afebrile, no leukocytosis, negative lipase -Improved with toradol, discontinued -procal: low Transaminitis -- RESOLVED -Hepatitis panel negative -Continue to monitor Prophylactic measures -Pepcid -Lovenox Disposition: Pending AFBx1 and Bronchoscopy results to rule out active versus latent TB DW with Dr. Perez Nichols DO, PGY-1 <Perez Joy - Last Filed: 08/14/17 17:34> Objective - Vital Signs/Intake and Output Vital Signs (last 24 hours): Temp Pulse Resp BP Pulse Ox 98.0 F 58 L 20 115/70 96 08/14/17 15:00 08/14/17 15:00 08/14/17 15:00 08/14/17 15:00 08/14/17 15:00 - Medications Medications: Current Medications Acetaminophen (Tylenol 325mg Tab) 650 mg PO Q6 PRN PRN Reason: Headache Last Admin: 08/12/17 15:44 Dose: 650 mg Enoxaparin Sodium (Lovenox) 40 mg SC DAILY [facility] Last Admin: 08/14/17 09:40 Dose: 40 mg Famotidine (Pepcid) 20 mg PO BID [facility] Last Admin: 08/14/17 09:40 Dose: 20 mg - Labs Labs: 08/14/17 07:28 08/14/17 07:28 Attending/Attestation - Attestation I have personally seen and examined this patient.: Yes I have fully participated in the care of the patient.: Yes I have reviewed all pertinent clinical information, including history, physical exam and plan: Yes Notes (Text): 08/14/17 17:33 Patient was seen and examined at 2:00 PM. Awaiting for Bronchial Washing Culture results. Perez Joy D.O.
[2017-08-14 07:37] LABS: BASO % 0.4 % (0.0-2.0); EOS # 0.1 K/uL (0.0-0.7); EOS % 1.4 % (0.0-4.0); HEMOGLOBIN 13.9 g/dL (11.0-16.0); LYMPH # 1.3 K/uL (1.0-4.3); MEAN CELL VOLUME 84.7 fL (81.0-99.0); MEAN CORPUSCULAR HEMOGLOBIN 29.1 pg (27.0-31.0); MEAN CORPUSCULAR HGB CONC 34.3 g/dL (33.0-37.0); MONO # 0.5 K/uL (0.0-0.8); NEUT # 3.8 K/uL (1.8-7.0); NEUT % 67.2 % (50.0-75.0); NRBC % 0.1 % (0.0-2.0); RBC 4.78 Mil/uL (3.80-5.20); RED CELL DISTRIBUTION WIDTH 13.7 % (11.5-14.5); WHITE BLOOD COUNT 5.7 K/uL (4.8-10.8)
--- NOTE | 2017-08-14 07:38 | OP ---
PROCEDURE DATE: 08/12/2017 REASON FOR PROCEDURE: Left upper lung cavitary mass/infiltrate. POSTOPERATIVE DIAGNOSIS: Left upper lung cavitary mass/infiltrate. PROCEDURE: Fiberoptic bronchoscopy procedure was done. DESCRIPTION OF PROCEDURE: After obtaining consent from the patient, explaining the patient risks and benefits, which she understood, the procedure was done under sedation by the anesthesiologist. The nose and the throat were prepared with lidocaine. The bronchoscope was passed through the right nostril into the throat. There was normal movement of vocal cords. After instilling lidocaine, the bronchoscope was advanced through the trachea, the trachea appeared normal. Small amount of copious secretions was noted which was suctioned out. First, the bronchoscope was passed on the right side, which appeared normal. Later, the bronchoscope was pulled back and passed through the left side. Bronchoalveolar lavage and biopsy were done from left upper lobe. The patient tolerated the procedure well. No complications. Adria Lew MD
[2017-08-14 07:52] LABS: ALBUMIN 4.2 g/dL (3.5-5.0); ALT/SGPT 29 U/L (9-52); AST/SGOT 38 U/L (14-36); BLOOD UREA NITROGEN 12 mg/dL (7-17); CALCIUM 9.2 mg/dl (8.6-10.4); GFR AFRICAN-AMERICAN > 60; GFR NON-AFRICAN AMERICAN > 60
[2017-08-14] MEDS: Enoxaparin 40 mg Syringe SC SCH (09:40)
[2017-08-15 01:18] VITALS: TEMP 98.5
--- NOTE | 2017-08-15 06:13 | CP.PCM.PN ---
Subjective - Date & Time of Evaluation Date of Evaluation: 08/15/17 Time of Evaluation: 06:11 - Subjective Subjective: Patient seen and examined at bedside. Doing well with no new complaints at this time. Tolerating diet. Denies any chest pain, SOB, fevers, chills, nausea, vomiting, diarrhea. Objective - Vital Signs/Intake and Output Vital Signs (last 24 hours): Temp Pulse Resp BP Pulse Ox 98.5 F 48 L 20 107/63 97 08/15/17 00:00 08/15/17 01:00 08/15/17 00:00 08/15/17 00:00 08/15/17 00:00 Intake and Output: 08/14/17 08/15/17 18:59 06:59 Intake Total 120 300 Balance 120 300 - Medications Medications: Current Medications Acetaminophen (Tylenol 325mg Tab) 650 mg PO Q6 PRN PRN Reason: Headache Last Admin: 08/12/17 15:44 Dose: 650 mg Enoxaparin Sodium (Lovenox) 40 mg SC DAILY [facility] Last Admin: 08/14/17 09:40 Dose: 40 mg Famotidine (Pepcid) 20 mg PO BID [facility] Last Admin: 08/14/17 17:34 Dose: 20 mg - Labs Labs: 08/14/17 07:28 08/14/17 07:28 - Additional Findings Additional findings: - Constitutional Appears: No Acute Distress - Head Exam Head Exam: ATRAUMATIC, NORMAL INSPECTION - Eye Exam Eye Exam: EOMI, Normal appearance - ENT Exam ENT Exam: Mucous Membranes Moist - Respiratory Exam Respiratory Exam: Clear to Ausculation Bilateral, NORMAL BREATHING PATTERN - Cardiovascular Exam Cardiovascular Exam: REGULAR RHYTHM, +S1, +S2 - GI/Abdominal Exam GI & Abdominal Exam: Distended, Soft, Normal Bowel Sounds - Extremities Exam Extremities Exam: Normal Inspection - Neurological Exam Neurological Exam: Alert, Awake, Oriented x3 - Psychiatric Exam Psychiatric exam: Normal Affect - Skin Additional comments: left forearm PPD Test: 20mm induration Assessment and Plan - Assessment and Plan (Free Text) Assessment: Bronchiectasis/cavitary changes of the lungs Rule out Latent TB -Patient currently has no pulmonary symptoms 08/10 -Pulmonary consulted, Dr. Lew help appreciated -ID consulted, Dr. 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 Bilateral increased reticular changes may reflect interstitial pulmonary disease low such as an atypical pneumonitis or reactive airways disease -CT abd shows bilateral ground glass opacity -CT Chest shows diffuse bilateral ground-glass opacity affects the upper greater than lower segments of the bilateral upper and lower lobes as well as the right middle lobe with bronchiectasis or cavitary changes either from current or postinfectious process in the left apex. Cardiomegaly and evidence suggesting pulmonary artery hypertension Labs: -procal: low; unlikely bacterial source - 08/10 PPD skin test: 20mm induration - Quantiferon Gold + --- will possibly need RIPE therapy, Lap Maker Sia spoke with [facility] - Bronchoscopy with Dr. Lew 08/12/17 - Sputum culture: no growth, AFBx2 no acid fast bacilli noted, pending last AFB and bronchial washings Hx of heart murmur - Cardiology consult: Dr. Wisdom - EKG - NSR, KARISHMA x 3 negative - Echo: LVEF 60-65%, mild TR, Pulmonic valvular regurgitation GERD -Pepcid Abdominal pain, resolving -CT abd shows nonacute abdomen pelvis examination. Hepatic steatosis. -Afebrile, no leukocytosis, negative lipase -Improved with toradol, discontinued -procal: low Transaminitis -- RESOLVED -Hepatitis panel negative -Continue to monitor Prophylactic measures -Pepcid -Lovenox Disposition: Pending AFBx1 and Bronchoscopy results to rule out active versus latent TB
[2017-08-15 07:52] VITALS: BP 108/68; O2SAT 96
[2017-08-15 08:03] LABS: BASO % 0.4 % (0.0-2.0); EOS # 0.1 K/uL (0.0-0.7); EOS % 1.5 % (0.0-4.0); HEMOGLOBIN 13.9 g/dL (11.0-16.0); LYMPH # 1.7 K/uL (1.0-4.3); LYMPH % 38.1 % (20.0-40.0); MEAN CORPUSCULAR HEMOGLOBIN 29.1 pg (27.0-31.0); MEAN CORPUSCULAR HGB CONC 34.3 g/dL (33.0-37.0); MEAN PLATELET VOLUME 10.9 fL (7.2-11.7); MONO # 0.4 K/uL (0.0-0.8); MONO % 8.3 % (0.0-10.0); NEUT # 2.4 K/uL (1.8-7.0); NEUT % 51.7 % (50.0-75.0); RBC 4.78 Mil/uL (3.80-5.20); RED CELL DISTRIBUTION WIDTH 13.8 % (11.5-14.5); WHITE BLOOD COUNT 4.6 K/uL (4.8-10.8)
[2017-08-15 08:34] LABS: ALB/GLOB RATIO 1.1 (1.0-2.1); ALBUMIN 4.3 g/dL (3.5-5.0); ALT/SGPT 27 U/L (9-52); AST/SGOT 26 U/L (14-36); BLOOD UREA NITROGEN 15 mg/dL (7-17); CALCIUM 9.2 mg/dl (8.6-10.4); GFR AFRICAN-AMERICAN > 60; GFR NON-AFRICAN AMERICAN > 60
[2017-08-15 09:28] VITALS: PULSE 53
[2017-08-15] MEDS: Enoxaparin 40 mg Syringe SC SCH (09:30)
--- NOTE | 2017-08-15 09:53 | CP.PCM.PN ---
Subjective - Date & Time of Evaluation Date of Evaluation: 08/15/17 Time of Evaluation: 09:46 - Subjective Subjective: Pulmonary Folow up, Covering Dr. Lew The patient was Seen and examined by me at the bedside, Events reviewed 46 year old female with PMHx of controlled asthma (since childhood) and systolic heart murmur (Dx about 2 years ago). Who presented yesterday with complaint on abdominal pain, mostly epigastric and upper Abd, Patient describes the pain as bloatingand non radiating. Patient underwent CT abd shows bilateral ground glass opacity, CXR shows Left apical fibrotic changes with cavitary lucency suspected. Patient has a history of TB age of 10-14, treated, also received BCG about 15 years and a Booster dose of BCG vaccine 6 years ago Patient underwent bronchoscopy, Post procedure CXR showed no pneumothorax. Patient lying in bed comfortably and no apparent distress. Patient afebrile, Tmx 99.8 saturating well at 96-100% on room air. Patient Denies shortness of breath, Fever/chills/night sweats, chest pain, Cough , hempotysis, or Palpitations This morning labs revealed No Leucocytosis, Stable renal function BUN/Cr 15/0.7 Bronchoscopy results negative so far, smear negative of AFB, however Quantiferon Gold Positive H Objective - Vital Signs/Intake and Output Vital Signs (last 24 hours): Temp Pulse Resp BP Pulse Ox 98.5 F 53 L 20 108/68 96 08/15/17 07:00 08/15/17 07:20 08/15/17 07:00 08/15/17 07:00 08/15/17 07:00 Intake and Output: 08/15/17 08/15/17 06:59 18:59 Intake Total 300 Balance 300 - Medications Medications: Current Medications Acetaminophen (Tylenol 325mg Tab) 650 mg PO Q6 PRN PRN Reason: Headache Last Admin: 08/12/17 15:44 Dose: 650 mg Enoxaparin Sodium (Lovenox) 40 mg SC DAILY [facility] Last Admin: 08/15/17 09:30 Dose: 40 mg Famotidine (Pepcid) 20 mg PO BID [facility] Last Admin: 08/15/17 09:30 Dose: 20 mg - Labs Labs: 08/15/17 07:58 08/15/17 07:58 - Constitutional Appears: Well, Non-toxic, No Acute Distress - Head Exam Head Exam: ATRAUMATIC, NORMAL INSPECTION, NORMOCEPHALIC - Eye Exam Eye Exam: absent: Conjunctival injection Pupil Exam: NORMAL ACCOMODATION, PERRL - Neck Exam Neck Exam: Full ROM, Normal Inspection. absent: Lymphadenopathy, Meningismus, Tenderness, Thyromegaly - Respiratory Exam Respiratory Exam: Clear to Ausculation Bilateral. absent: Accessory Muscle Use , Chest Wall Tenderness, Decreased Breath Sounds, Rales, Rhonchi, Wheezes - Cardiovascular Exam Cardiovascular Exam: REGULAR RHYTHM, RRR, +S1, +S2. absent: Bradycardia, Tachycardia, JVD - GI/Abdominal Exam GI & Abdominal Exam: Soft, Normal Bowel Sounds. absent: Distended, Firm - Rectal Exam Rectal Exam: Deferred - Extremities Exam Extremities Exam: Full ROM, Normal Capillary Refill, Normal Inspection. absent : Calf Tenderness, Joint Swelling, Pedal Edema, Tenderness - Back Exam Back Exam: absent: CVA tenderness (L), CVA tenderness (R) - Neurological Exam Neurological Exam: Alert, Awake, CN II-XII Intact, Oriented x3 Assessment and Plan (1) Bronchiectasis Status: Acute (2) Cavitary lesion of lung Status: Acute (3) Ground glass opacity present on imaging of lung Status: Acute (4) Pulmonary hypertension Status: Acute - Assessment and Plan (Free Text) Assessment: Assessment/Plan Patient afebrile without current cough or shortness of breath. Patient has a history of TB age of 10-14, treated, She received BCG about 15 years and a Booster dose of BCG vaccine 6 years ago Bronchoscopy results negative so far, smear negative of AFB, however Quantiferon Gold Positive H May discontinue isolation, she stable for pulmonary standpoint for discharge. Follow-up TB clinic Follow-up bronchoscopic cultures and treat accordingly, Possible MAC vs. tuberculosis (Low suspicion).
--- NOTE | 2017-08-15 11:55 | CP.PCM.DIS ---
<Billie Hartley - Last Filed: 08/15/17 13:13> Provider - Provider Date of Admission: 08/10/17 15:34 Attending physician: Perez Joy MD Time Spent in preparation of Discharge (in minutes): 40 Hospital Course - Lab Results Lab Results: Micro Results 08/12/17 14:09 Other: Please Indicate Mycobacterial Culture - Preliminary 08/11/17 14:07 Other: Please Indicate Mycobacterial Culture - Preliminary 08/12/17 12:17 Bronchial Washings Fungal Culture - Preliminary 08/10/17 10:00 Sputum Gram Stain - Final 08/10/17 10:00 Sputum Sputum Culture - Final NORMAL ORAL SHUBHAM 08/10/17 10:00 Other: Please Indicate Mycobacterial Culture - Preliminary 08/09/17 21:46 Other: Please Indicate Mycobacterial Culture - Preliminary Most Recent Lab Values WBC 4.6 K/uL (4.8-10.8) L 08/15/17 07:58 RBC 4.78 Mil/uL (3.80-5.20) 08/15/17 07:58 Hgb 13.9 g/dL (11.0-16.0) 08/15/17 07:58 Hct 40.6 % (34.0-47.0) 08/15/17 07:58 MCV 85.0 fL (81.0-99.0) 08/15/17 07:58 MCH 29.1 pg (27.0-31.0) 08/15/17 07:58 MCHC 34.3 g/dL (33.0-37.0) 08/15/17 07:58 RDW 13.8 % (11.5-14.5) 08/15/17 07:58 Plt Count 139 K/uL (130-400) 08/15/17 07:58 MPV 10.9 fL (7.2-11.7) 08/15/17 07:58 Neut % (Auto) 51.7 % (50.0-75.0) 08/15/17 07:58 Lymph % (Auto) 38.1 % (20.0-40.0) 08/15/17 07:58 [place] % (Auto) 8.3 % (0.0-10.0) 08/15/17 07:58 Eos % (Auto) 1.5 % (0.0-4.0) 08/15/17 07:58 Baso % (Auto) 0.4 % (0.0-2.0) 08/15/17 07:58 Neut # (Auto) 2.4 K/uL (1.8-7.0) 08/15/17 07:58 Lymph # (Auto) 1.7 K/uL (1.0-4.3) 08/15/17 07:58 [place] # (Auto) 0.4 K/uL (0.0-0.8) 08/15/17 07:58 Eos # (Auto) 0.1 K/uL (0.0-0.7) 08/15/17 07:58 Baso # (Auto) 0.0 K/uL (0.0-0.2) 08/15/17 07:58 Differential Comment 08/10/17 07:25 ESR 10 mm/hr (0-20) 08/08/17 16:40 Sodium 141 mmol/L (132-148) 08/15/17 07:58 Potassium 3.9 mmol/L (3.6-5.2) 08/15/17 07:58 Chloride 104 mmol/L (98-107) 08/15/17 07:58 Carbon Dioxide 25 mmol/L (22-30) 08/15/17 07:58 Anion Gap 17 (10-20) 08/15/17 07:58 BUN 15 mg/dL (7-17) 08/15/17 07:58 Creatinine 0.7 mg/dL (0.7-1.2) 08/15/17 07:58 Est GFR ( Amer) > 60 08/15/17 07:58 Est GFR (Non-Af Amer) > 60 08/15/17 07:58 Random Glucose 95 mg/dL (65-105) 08/15/17 07:58 Calcium 9.2 mg/dl (8.6-10.4) 08/15/17 07:58 Phosphorus 4.0 mg/dL (2.5-4.5) 08/15/17 07:58 Magnesium 2.3 mg/dL (1.6-2.3) 08/15/17 07:58 Total Bilirubin 0.2 mg/dL (0.2-1.3) 08/15/17 07:58 AST 26 U/L (14-36) 08/15/17 07:58 ALT 27 U/L (9-52) 08/15/17 07:58 Alkaline Phosphatase 88 U/L (38-126) 08/15/17 07:58 Total Creatine Kinase 58 U/L (30-135) 08/09/17 07:50 CK-MB (Mass) 0.30 ng/mL (0.0-3.38) 08/09/17 07:50 Troponin I < 0.0120 ng/mL (0.00-0.120) 08/09/17 07:50 NT-Pro-B Natriuret Pep 71.2 pg/mL (0-450) 08/08/17 04:42 Total Protein 8.2 g/dL (6.3-8.3) 08/15/17 07:58 Albumin 4.3 g/dL (3.5-5.0) 08/15/17 07:58 Globulin 3.9 gm/dL (2.2-3.9) 08/15/17 07:58 Albumin/Globulin Ratio 1.1 (1.0-2.1) 08/15/17 07:58 Lipase 125 U/L (23-300) 08/08/17 04:42 Procalcitonin < 0.05 NG/ML (0.19-0.49) L 08/08/17 16:40 Beta HCG, Quant < 2.39 mIU/ML 08/12/17 09:39 Urine Color Yellow (YELLOW) 08/08/17 04:49 Urine Clarity Hazy (Clear) 08/08/17 04:49 Urine pH 6.0 (5.0-8.0) 08/08/17 04:49 Ur Specific [place] 1.018 (1.003-1.030) 08/08/17 04:49 Urine Protein Negative mg/dL (NEGATIVE) 08/08/17 04:49 Urine Glucose (UA) Normal mg/dL (Normal) 08/08/17 04:49 Urine Ketones Negative mg/dL (NEGATIVE) 08/08/17 04:49 Urine Blood Negative (NEGATIVE) 08/08/17 04:49 Urine Nitrate Negative (NEGATIVE) 08/08/17 04:49 Urine Bilirubin Negative (NEGATIVE) 08/08/17 04:49 Urine Urobilinogen Normal mg/dL (0.2-1.0) 08/08/17 04:49 Ur Leukocyte Esterase Neg Rea/uL (Negative) 08/08/17 04:49 Urine WBC (Auto) 4 /hpf (0-5) 08/08/17 04:49 Urine RBC (Auto) 2 /hpf (0-3) 08/08/17 04:49 Ur Squamous Epith Cells 3 /hpf (0-5) 08/08/17 04:49 Hepatitis A IgM Ab Negative (NEGATIVE) 08/09/17 07:50 Hep Bs Antigen Negative (NEGATIVE) 08/09/17 07:50 Hep B Core IgM Ab Negative (NEGATIVE) 08/09/17 07:50 Hepatitis C Antibody Negative (NEGATIVE) 08/09/17 07:50 HIV 1&2 Antibody Screen Negative (NEGATIVE) 08/09/17 07:50 Aspergillus flavus Ab Negative (Negative) 08/09/17 07:50 Aspergill fumigatus Ab Negative (Negative) 08/09/17 07:50 Aspergillus niger Ab Negative (Negative) 08/09/17 07:50 TB Test (QFT) Nil 0.23 IU/mL 08/09/17 11:22 TB Test Mitogen - Nil 3.70 IU/mL 08/09/17 11:22 TB Test TB - Nil 2.34 IU/mL 08/09/17 11:22 TB Test (QFT) Positive (Negative) H 08/09/17 11:22 - Hospital Course Hospital Course: 46 year old female with past medical history of childhood asthma, systolic heart murmur, presents today with abdominal pain. Patient reports her abdominal pain started suddenly this morning at 3am. Patient woke up from her sleep due the this pain. Patient describes the pain as bloating in quality, and non radiating. Patient also reports to feel nauseous and chills associated with this abdominal pain, but no vomiting. The pain is worse with movement. No prior history of the same. Patient denies having sick contacts, changes in diet, recent travels, fever, night sweat, weight loss, headache, shortness of breath, chest pain, diarrhea, urinary complaints. Patient reports to have asthma when she was a child and have not experienced any attacks since. She was evaluated by a senior stereo compiler team lead for her heart murmur about 2 years ago and was told no intervention was necessary at the time. In the ED, chest CT shows diffuse bilateral ground-glass opacity and cavitary lesion of lung. She further denies having previous lung infections or trauma. PMD: [address] [place] [address] clinic PMHx: childhood asthma, systolic heart murmur PSHx: (2002, 2008) Allergy: mometasone Family Hx: Father with brain caner 2010 Social hx: denies tobacco, alcohol or drug use. Lives at home with and two children. 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 Home meds: Advil prn for back pain Hospital Course: Patient was admitted to the hospital for abdominal pain. During admission patient was found to have cavitory lesion on admission. Pulmonary was consulted , Dr. Lew and infectious disease, Dr. Owens. 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 Patient was placed in isolation on admission. Patient had 3 negative sputum cultures (negative acid fast). Patient also had a bronch with pending cultures for patient to follow up as an out patient. Patient denied cough, shortness of breath, fever, chills, chest pain, palpitations, nausea or vomiting. Images: -CXR shows Left apical fibrotic changes with cavitary lucency suspected. Bilateral increased reticular changes may reflect interstitial pulmonary disease low such as an atypical pneumonitis or reactive airways disease -CT abd shows bilateral ground glass opacity -CT Chest shows diffuse bilateral ground-glass opacity affects the upper greater than lower segments of the bilateral upper and lower lobes as well as the right middle lobe with bronchiectasis or cavitary changes either from current or postinfectious process in the left apex. Cardiomegaly and evidence suggesting pulmonary artery hypertension -CT abd shows nonacute abdomen pelvis examination. Hepatic steatosis. - EKG - NSR, KARISHMA x 3 negative - Echo: LVEF 60-65%, mild TR, Pulmonic valvular regurgitation Patient stable for discharge home. No medications needed at this time. No se necesitan medicamentos en jesus manuel momento. Por favor chicho annamaria brannon con cualquier clnica de medicina familiar: [facility] [address] [place] [address] [facility] [address] [facility], [address] # [phone] Tambin chicho annamaria brannon en la clnica de pulmn: [facility] Chest Clinic: [address] [place], [place] # [phone] Extension #2009 This is a summary of the patient's hospitalization, please review EMR for further details Discharge Exam - Head Exam Head Exam: ATRAUMATIC, NORMAL INSPECTION, NORMOCEPHALIC - Eye Exam Eye Exam: EOMI, Normal appearance, PERRL Pupil Exam: NORMAL ACCOMODATION - ENT Exam ENT Exam: Mucous Membranes Moist - Respiratory Exam Respiratory Exam: Clear to PA & Lateral, NORMAL BREATHING PATTERN - Cardiovascular Exam Cardiovascular Exam: REGULAR RHYTHM, +S1, +S2 - GI/Abdominal Exam GI & Abdominal Exam: Normal Bowel Sounds, Soft. absent: Tenderness - Extremities Exam Extremities exam: normal inspection - Neurological Exam Neurological exam: Alert, Oriented x3 - Psychiatric Exam Psychiatric exam: Normal Affect, Normal Mood - Skin Skin Exam: Normal Color Discharge Plan - Follow Up Plan Condition: STABLE Disposition: HOME/ ROUTINE Instructions: Tuberculosis (DC) Referrals: Marly Álvarez MD [Staff Provider] - <Perez Joy - Last Filed: 08/15/17 14:23> Provider - Provider Date of Admission: 08/10/17 15:34 Attending physician: Perez Joy MD Hospital Course - Lab Results Lab Results: Micro Results 08/12/17 14:09 Other: Please Indicate Mycobacterial Culture - Preliminary 08/11/17 14:07 Other: Please Indicate Mycobacterial Culture - Preliminary 08/12/17 12:17 Bronchial Washings Fungal Culture - Preliminary 08/10/17 10:00 Sputum Gram Stain - Final 08/10/17 10:00 Sputum Sputum Culture - Final NORMAL ORAL SHUBHAM 08/10/17 10:00 Other: Please Indicate Mycobacterial Culture - Preliminary 08/09/17 21:46 Other: Please Indicate Mycobacterial Culture - Preliminary Most Recent Lab Values WBC 4.6 K/uL (4.8-10.8) L 08/15/17 07:58 RBC 4.78 Mil/uL (3.80-5.20) 08/15/17 07:58 Hgb 13.9 g/dL (11.0-16.0) 08/15/17 07:58 Hct 40.6 % (34.0-47.0) 08/15/17 07:58 MCV 85.0 fL (81.0-99.0) 08/15/17 07:58 MCH 29.1 pg (27.0-31.0) 08/15/17 07:58 MCHC 34.3 g/dL (33.0-37.0) 08/15/17 07:58 RDW 13.8 % (11.5-14.5) 08/15/17 07:58 Plt Count 139 K/uL (130-400) 08/15/17 07:58 MPV 10.9 fL (7.2-11.7) 08/15/17 07:58 Neut % (Auto) 51.7 % (50.0-75.0) 08/15/17 07:58 Lymph % (Auto) 38.1 % (20.0-40.0) 08/15/17 07:58 Oxford % (Auto) 8.3 % (0.0-10.0) 08/15/17 07:58 Eos % (Auto) 1.5 % (0.0-4.0) 08/15/17 07:58 Baso % (Auto) 0.4 % (0.0-2.0) 08/15/17 07:58 Neut # (Auto) 2.4 K/uL (1.8-7.0) 08/15/17 07:58 Lymph # (Auto) 1.7 K/uL (1.0-4.3) 08/15/17 07:58 Oxford # (Auto) 0.4 K/uL (0.0-0.8) 08/15/17 07:58 Eos # (Auto) 0.1 K/uL (0.0-0.7) 08/15/17 07:58 Baso # (Auto) 0.0 K/uL (0.0-0.2) 08/15/17 07:58 Differential Comment 08/10/17 07:25 ESR 10 mm/hr (0-20) 08/08/17 16:40 Sodium 141 mmol/L (132-148) 08/15/17 07:58 Potassium 3.9 mmol/L (3.6-5.2) 08/15/17 07:58 Chloride 104 mmol/L (98-107) 08/15/17 07:58 Carbon Dioxide 25 mmol/L (22-30) 08/15/17 07:58 Anion Gap 17 (10-20) 08/15/17 07:58 BUN 15 mg/dL (7-17) 08/15/17 07:58 Creatinine 0.7 mg/dL (0.7-1.2) 08/15/17 07:58 Est GFR ( Amer) > 60 08/15/17 07:58 Est GFR (Non-Af Amer) > 60 08/15/17 07:58 Random Glucose 95 mg/dL (65-105) 08/15/17 07:58 Calcium 9.2 mg/dl (8.6-10.4) 08/15/17 07:58 Phosphorus 4.0 mg/dL (2.5-4.5) 08/15/17 07:58 Magnesium 2.3 mg/dL (1.6-2.3) 08/15/17 07:58 Total Bilirubin 0.2 mg/dL (0.2-1.3) 08/15/17 07:58 AST 26 U/L (14-36) 08/15/17 07:58 ALT 27 U/L (9-52) 08/15/17 07:58 Alkaline Phosphatase 88 U/L (38-126) 08/15/17 07:58 Total Creatine Kinase 58 U/L (30-135) 08/09/17 07:50 CK-MB (Mass) 0.30 ng/mL (0.0-3.38) 08/09/17 07:50 Troponin I < 0.0120 ng/mL (0.00-0.120) 08/09/17 07:50 NT-Pro-B Natriuret Pep 71.2 pg/mL (0-450) 08/08/17 04:42 Total Protein 8.2 g/dL (6.3-8.3) 08/15/17 07:58 Albumin 4.3 g/dL (3.5-5.0) 08/15/17 07:58 Globulin 3.9 gm/dL (2.2-3.9) 08/15/17 07:58 Albumin/Globulin Ratio 1.1 (1.0-2.1) 08/15/17 07:58 Lipase 125 U/L (23-300) 08/08/17 04:42 Procalcitonin < 0.05 NG/ML (0.19-0.49) L 08/08/17 16:40 Beta HCG, Quant < 2.39 mIU/ML 08/12/17 09:39 Urine Color Yellow (YELLOW) 08/08/17 04:49 Urine Clarity Hazy (Clear) 08/08/17 04:49 Urine pH 6.0 (5.0-8.0) 08/08/17 04:49 Ur Specific [place] 1.018 (1.003-1.030) 08/08/17 04:49 Urine Protein Negative mg/dL (NEGATIVE) 08/08/17 04:49 Urine Glucose (UA) Normal mg/dL (Normal) 08/08/17 04:49 Urine Ketones Negative mg/dL (NEGATIVE) 08/08/17 04:49 Urine Blood Negative (NEGATIVE) 08/08/17 04:49 Urine Nitrate Negative (NEGATIVE) 08/08/17 04:49 Urine Bilirubin Negative (NEGATIVE) 08/08/17 04:49 Urine Urobilinogen Normal mg/dL (0.2-1.0) 08/08/17 04:49 Ur Leukocyte Esterase Neg Rea/uL (Negative) 08/08/17 04:49 Urine WBC (Auto) 4 /hpf (0-5) 08/08/17 04:49 Urine RBC (Auto) 2 /hpf (0-3) 08/08/17 04:49 Ur Squamous Epith Cells 3 /hpf (0-5) 08/08/17 04:49 Hepatitis A IgM Ab Negative (NEGATIVE) 08/09/17 07:50 Hep Bs Antigen Negative (NEGATIVE) 08/09/17 07:50 Hep B Core IgM Ab Negative (NEGATIVE) 08/09/17 07:50 Hepatitis C Antibody Negative (NEGATIVE) 08/09/17 07:50 HIV 1&2 Antibody Screen Negative (NEGATIVE) 08/09/17 07:50 Aspergillus flavus Ab Negative (Negative) 08/09/17 07:50 Aspergill fumigatus Ab Negative (Negative) 08/09/17 07:50 Aspergillus niger Ab Negative (Negative) 08/09/17 07:50 TB Test (QFT) Nil 0.23 IU/mL 08/09/17 11:22 TB Test Mitogen - Nil 3.70 IU/mL 08/09/17 11:22 TB Test TB - Nil 2.34 IU/mL 08/09/17 11:22 TB Test (QFT) Positive (Negative) H 08/09/17 11:22 Attending/Attestation - Attestation I have personally seen and examined this patient.: Yes I have fully participated in the care of the patient.: Yes I have reviewed all pertinent clinical information, including history, physical exam and plan: Yes Notes (Text): 08/15/17 14:19 Patient was seen and examined with resident Dr. Zarina Hartley. Exam, assessment and plan and discharge instructions were gone over with Dr. Hartley who translated follow up in [place]an to patient at the time of our exam. Discussed with both ID Dr. Ownes and Manager Materials Management Dr Mace (covering for Dr. Lew): agree that patient does not have active TB nor latent TB. She has been treated for TB in the past (please see prior documentation) and as cultures have been negative and as patient is totally asymptomatic, no treatment at this time. Perez Joy D.O.
--- NOTE | 2017-08-17 13:50 | CARD ---
APPROVED REPORT EKG Measurement Heart [id number] <Conclusion> Sinus bradycardia Otherwise normal ECG
== END 2017-08-15 14:50 | disposition home or self-care (01) | DRG 477 ==
LOC: C.ER 03:55 → C.9E 12:11 → C.3T 12:52 → C.5S 19:26 → OBSVTOIN 08-10 15:34
PROVIDERS: ADMIT Internal Medicine; ATTEND Family Medicine
PROC: 0B9G8ZX Drainage of Left Upper Lung Lobe, Via Natural or Artificial Opening Endoscopic, Diagnostic (ICD-10-PCS; principal; 2017-08-12 14:15)
DX: K76.0 Fatty (change of) liver, not elsewhere classified (principal); I07.1 Rheumatic tricuspid insufficiency; J47.9 Bronchiectasis, uncomplicated; J45.909 Unspecified asthma, uncomplicated; Z86.11 Personal history of tuberculosis; I27.21 Secondary pulmonary arterial hypertension; K21.9 Gastro-esophageal reflux disease without esophagitis